=== PATIENT | male | born 1985 | race Caucasian/White ===

== ENCOUNTER 2017-06-10 21:50 | Inpatient (IN) | payer OTHER ==
[~2017-06-10] VITALS: Ht 188 cm; Wt 90.4 kg
[~2017-06-10 21:50] MED LIST: LRT5 PO
[2017-06-10] MEDS ORDERED: KETOROLAC TROMETHAMINE 30 MG/ML VIAL IV STA (22:20)
[2017-06-10] MEDS ORDERED: TRAZ100T29 PO (22:26)
[2017-06-10] MEDS ORDERED: GABA800T PO (22:26)
[2017-06-10] MEDS ORDERED: OPTIRAY 320 IV PRN (22:45)
[2017-06-10] MEDS ORDERED: LORAZEPAM 2 MG/ML 1 ML VIAL ONE (23:12)
[2017-06-10] MEDS ORDERED: LIDOCAINE 1% BUFFERED INJ 20 ML VIAL INFIL ONE (23:15)
--- NOTE | 2017-06-10 23:22 | EMERGENCY ROOM VISIT NOTE ---
History First contact with patient: 22:00 Chief Complaint: ANKLE PAIN Stated Complaint: R ANKLE PAIN/SWOLLEN History of Present Illness The patient is a 31 year old male who presents to the Emergency Room with complaints of severe swelling and pain in the right ankle. The patient rolled the ankle one week ago. He was seen at an emergency department where an x-ray was performed. No fracture was noted. He was given crutches and splint. He has been trying ibuprofen for pain. He thinks that the pain and swelling is getting worse. He also notes that he has felt slightly feverish. He has not taken his temperature at home. The patient had an injury to his right great toe a few days ago. He does have problems with this toenail. He accidentally kicked a weight. He has been cleaning it daily with peroxide. His tetanus shot is up-to-date. Review of Systems 10 system review performed and negative unless noted in HPI or below Past Medical/Surgical History Otherwise healthy Social History Smoking Status: Current Every Day Smoker Current/Historical Medications Scheduled Gabapentin (Neurontin), 800 MG PO TID Trazodone Hcl (Trazodone), 100 MG PO HS Physical Exam Vital Signs Date Time Temp Pulse Resp B/P (MAP) Pulse Ox O2 Delivery O2 Flow Rate FiO2 06/11/17 00:27 82 18 167/97 98 Room Air 06/10/17 21:52 37.0 125 18 154/85 97 Room Air Physical Exam VITALS: Vitals are noted on the nurse's note and reviewed by myself. Vital signs stable. GENERAL: 31-year-old male, anxious in appearance,, in no acute distress, nondiaphoretic, well-developed well-nourished. HEAD: Normocephalic atraumatic. HEART: Regular rate and rhythm without murmurs gallops or rubs. LUNGS: Clear to auscultation bilaterally without wheezes, rales or rhonchi. No accessory muscle use. MUSCULOSKELETAL: RLE: Significant nonpitting edema and erythema noted starting at the mid humphreys extending distally to the forefoot. Warmth noted. Severe tenderness over the lateral malleolus and distal fibula. No significant tenderness over the foot. The right great toenail is displaced from the nailbed. There is pus coming from the nailbed. No significant pain with flexion or extension of the toe. NEURO: Patient was alert and oriented to person place and time. Normal sensation to touch. No focal neurological deficits. Medical Decision & Procedures ER Provider Diagnostic Interpretation: CT of the lower extremity preliminary report Significant soft tissue edema Small fluid collection to the lateral ankle No bony destruction Please see final report for details Laboratory Results 06/10/17 23:07 Red Blood Count 4.29, Mean Corpuscular Volume 88.3, Mean Corpuscular Hemoglobin 29.8, Mean Corpuscular Hemoglobin Concent 33.8, Mean Platelet Volume 9.2, Neutrophils (%) (Auto) 61.3, Lymphocytes (%) (Auto) 23.6, Monocytes (%) (Auto) 12.4, Eosinophils (%) (Auto) 1.2, Basophils (%) (Auto) 0.2, Neutrophils # (Auto ) 7.86, Lymphocytes # (Auto) 3.03, Monocytes # (Auto) 1.59, Eosinophils # (Auto ) 0.15, Basophils # (Auto) 0.03 06/10/17 23:09 Test 06/10/17 23:07 06/10/17 23:09 White Blood Count 12.83 K/uL (4.8-10.8) Red Blood Count 4.29 M/uL (4.7-6.1) Hemoglobin 12.8 g/dL (14.0-18.0) Hematocrit 37.9 % (42-52) Mean Corpuscular Volume 88.3 fL (80-100) Mean Corpuscular Hemoglobin 29.8 pg (25-34) Mean Corpuscular Hemoglobin Concent 33.8 g/dl (32-36) Platelet Count 326 K/uL (130-400) Mean Platelet Volume 9.2 fL (7.4-10.4) Neutrophils (%) (Auto) 61.3 % Lymphocytes (%) (Auto) 23.6 % Monocytes (%) (Auto) 12.4 % Eosinophils (%) (Auto) 1.2 % Basophils (%) (Auto) 0.2 % Neutrophils # (Auto) 7.86 K/uL (1.4-6.5) Lymphocytes # (Auto) 3.03 K/uL (1.2-3.4) Monocytes # (Auto) 1.59 K/uL (0.11-0.59) Eosinophils # (Auto) 0.15 K/uL (0-0.5) Basophils # (Auto) 0.03 K/uL (0-0.2) RDW Standard Deviation 39.4 fL (36.4-46.3) RDW Coefficient of Variation 12.3 % (11.5-14.5) Immature Granulocyte % (Auto) 1.3 % Immature Granulocyte # (Auto) 0.17 K/uL (0.00-0.02) Lactic Acid Level 1.2 mmol/L (0.4-2.0) Anion Gap 5.0 mmol/L (3-11) Est Creatinine Clear Calc Drug Dose 188.6 ml/min Estimated GFR () 149.3 Estimated GFR (Non- 128.8 BUN/Creatinine Ratio 17.9 (10-20) Calcium Level 8.5 mg/dl (8.5-10.1) Medications Administered Medications (Trade) Dose Ordered Sig/Hugo Route Start Time Stop Time Status Last Admin Dose Admin Ketorolac Tromethamine (Toradol Inj) 30 mg NOW STAT IV 06/10/17 22:20 06/10/17 22:22 DC 06/10/17 22:37 30 MG Lidocaine HCl (Buffered Lidocaine 1% Inj) 20 ml NOW ONCE INFIL 06/10/17 23:15 06/10/17 23:16 DC 06/10/17 23:26 20 ML Lorazepam (Ativan Inj) 2 mg STK-MED ONCE .ROUTE 06/10/17 23:12 06/10/17 23:13 DC 06/10/17 23:25 1 MG Tramadol HCl (Ultram Tab) 50 mg ONE STAT PO 06/11/17 00:24 06/11/17 00:25 DC 06/11/17 00:36 50 MG Lorazepam 0.5 mg/ Syringe 0.5 ml @ 0.5 mls/min NOW STAT IV 06/11/17 00:24 06/11/17 00:26 DC 06/11/17 00:36 0.5 MLS/MIN Ceftriaxone Sodium (Rocephin Inj) 1 gm NOW STAT IV 06/11/17 00:29 06/11/17 00:30 DC 06/11/17 00:35 1 GM Procedure Anesthesia of the right great toe was achieved with lidocaine performing a digital block. The area was sterilely draped. The toenail was gently displaced from the nail bed. The area was thoroughly cleansed with Betadine and normal saline. A piece of sterile aluminum was gently placed back into the nail fold and secured in place with 4 simple interrupted sutures. The patient tolerated this procedure well. ED Course Patient was seen and examined Vital signs including blood pressure were reviewed medications list was verified with patient Labs were obtained, and a saline lock was established The patient was medicated with Toradol and Ativan The patient was given 1 dose of Rocephin 1 g IV Imaging was performed and reviewed The toenail was removed. Please see my procedure note. The patient requested an additional dose of Ativan, which was given IV. He was also given Ultram by mouth. The case was discussed with case management The [facility] service was consulted. He will be evaluated and likely be admitted for further workup and treatment Medical Decision Differential diagnosis: Ankle fracture, sprain, cellulitis, abscess, perionychia This patient is a 31-year-old male that presents to the emergency department with significant erythema, edema and pain in the right ankle and foot. He did have an injury 1 week ago. He also injured his right great toenail. On exam, he was significantly erythematous, warm to touch and painful. The right great toe was significantly infected and likely the source of cellulitis. He did have leukocytosis. He has felt febrile. CT was consistent with cellulitis. No signs of osteomyelitis. I do not feel comfortable sending this patient home. I believe he would do better eating admitted to the hospital for IV antibiotics. The [facility] service was consulted. They will evaluate the patient for possible admission. This chart was completed in part utilizing [employer] Speech Voice Recognition software. Attempts were made to minimize the grammatical errors, random word insertions, pronoun errors and incomplete sentences. Any formal questions or concerns about the content, text or information contained within the body of this dictation should be directly addressed to the provider for clarification. Consults Consulting Physician: [facility] Impression Primary Impression: Cellulitis of right lower extremity Departure Information Referrals No Doctor, Assigned (PCP) Patient Instructions [facility]
[2017-06-10] MEDS ORDERED: BUPIVACAINE/EPINEPHRINE 0.5% 1:200,000 1.8 ML CARP ONE (23:29)
[2017-06-10] MEDS ORDERED: BUPIVACAINE 0.5 % 5 MG/1 ML MPF 30ML VIAL ONE (23:31)
[2017-06-10 23:33] LABS: BASO % 0.2 %; BASO ABS # 0.03 K/uL (0-0.2); EOS % 1.2 %; EOS ABS # 0.15 K/uL (0-0.5); HEMATOCRIT 37.9 % (42-52); HEMOGLOBIN 12.8 g/dL (14.0-18.0); IG# 0.17 K/uL (0.00-0.02); LYMPH % 23.6 %; LYMPH ABS # 3.03 K/uL (1.2-3.4); MEAN CELL VOLUME 88.3 fL (80-100); MEAN CORPUSCULAR HEMOGLOBIN 29.8 pg (25-34); MEAN CORPUSCULAR HGB CONC 33.8 g/dl (32-36); MEAN PLATELET VOLUME 9.2 fL (7.4-10.4); MONO % 12.4 %; MONO ABS # 1.59 K/uL (0.11-0.59); NEUT % 61.3 %; NEUT ABS # 7.86 K/uL (1.4-6.5); PLATELET COUNT 326 K/uL (130-400); RED CELL DISTRIBUTION WIDTH CV 12.3 % (11.5-14.5); RED CELL DISTRIBUTION WIDTH SD 39.4 fL (36.4-46.3); WHITE BLOOD COUNT 12.83 K/uL (4.8-10.8)
[2017-06-10 23:43] LABS: CALCIUM 8.5 mg/dl (8.5-10.1); CREATININE 0.66 mg/dl (0.60-1.40); POTASSIUM 3.8 mmol/L (3.5-5.1)
[2017-06-11] MEDS ORDERED: TRAMADOL HCL 50 MG TAB PO STA (00:24)
[2017-06-11] MEDS ORDERED: LORAZEPAM INJ 0.5 MG in SYRINGE 0.25 ML IV STA ×2 (00:24→13:43)
[2017-06-11] MEDS ORDERED: LORAZEPAM INJ 1 MG in SYRINGE 0.5 ML IV STA (00:29)
[2017-06-11] MEDS ORDERED: CEFTRIAXONE SOD INJ 1 GM ADDVIAL IV STA (00:29)
[2017-06-11] MEDS ORDERED: LORAZEPAM 2 MG/ML 1 ML VIAL ONE (00:32)
[2017-06-11] MEDS ORDERED: OXYCODONE/ACETAMINOPHEN 7.5-325 TAB PO PRN (02:30)
[2017-06-11] MEDS ORDERED: ACETAMINOPHEN 325 MG TAB PO PRN (03:00)
[2017-06-11] MEDS ORDERED: MAGNESIUM HYDROXIDE SUSP 30 ML UDC PO PRN (03:00)
[2017-06-11] MEDS ORDERED: ALUMINUM/MAGNESIUM/SIMETH (MAALOX MAX) 30 ML UDC PO PRN (03:00)
[2017-06-11] MEDS ORDERED: POLYETHYLENE (MIRALAX) 17 GM PACK PO PRN (03:00)
[2017-06-11] MEDS ORDERED: ONDANSETRON INJ 2 MG/ML 2 ML VIAL IV PRN (03:00)
--- NOTE | 2017-06-11 03:10 | History and Physical ---
History & Physical Date & Time of Service: Jun 11, 2017 at 02:56 Chief Complaint: R Ankle Pain/Swollen Primary Care Physician: No Doctor, Assigned History of Present Illness Source: patient 31 y/o M Hx anxiety and back pain. 5 days prior he had stubbed his R great toe. His foot has become progressively inflamed since that time. He reports associated fevers as well. He had initially visited the [facility] where he obtained imaging to r/o a fracture. The pt had intended to visit his orthopedist the following day but has not done so due to the holidays. In the ER, extraction of his toenail was performed and a considerable amount of pus was expressed from the area. Past Medical/Surgical History 1) Chronic back pain 2) Anxiety 3) Tobacco use disorder Family History Parents alive and well Social History Smokes 1/2 pack/day - does not drink - works for [employer] Smoking Status: Current Every Day Smoker Allergies Coded Allergies: No Known Allergies (Unverified , 06/10/17) Home Medications Scheduled Gabapentin (Neurontin), 800 MG PO TID Trazodone Hcl (Trazodone), 100 MG PO HS Review of Systems Constitutional: + fever, No chills, No sweats Eyes: No worsening of vision ENT: No hearing loss Respiratory: No cough, No sputum, No wheezing Cardiovascular: No chest pain, No orthopnea Abdomen: No pain, No nausea, No vomiting Musculoskeletal: + problem reported (PAin in R foot/toe) Genitourinary - Male: No hematuria, No dysuria Neurologic: No memory loss, No paralysis, No weakness Psychiatric: No depression symptoms Endocrine: No fatigue Hematologic / Lymphatic: No abnormal bleeding/bruising Integumentary: + rash (cellulitis extending over R foot) Physical Exam Vital Signs Date Time Temp Pulse Resp B/P (MAP) Pulse Ox O2 Delivery O2 Flow Rate FiO2 06/11/17 00:27 82 18 167/97 98 Room Air 06/10/17 21:52 37.0 125 18 154/85 97 Room Air General Appearance: WD/WN, no apparent distress Head: normocephalic Eyes: normal inspection ENT: normal ENT inspection, hearing grossly normal Neck: supple, no JVD Respiratory/Chest: chest non-tender, lungs clear, normal breath sounds Cardiovascular: regular rate, rhythm, no edema, no gallop Abdomen/GI: normal bowel sounds, non tender, soft Back: normal inspection, no CVA tenderness Extremities/Musculoskelatal: + pertinent finding (Swelling, erythema, tenderness of R foot over dorsum and considerable tenderness over lat maleolus) Neurologic/Psych: soap slabber II-XII nml as tested, no motor/sensory deficits, alert Skin: + pertinent finding (Swelling, erythema of R foot over dorsum and considerable redness/tenderness over lat maleolus) Diagnostics Laboratory Results Results Past 24 Hours Test 06/10/17 23:07 06/10/17 23:09 Range/Units White Blood Count 12.83 4.8-10.8 K/uL Red Blood Count 4.29 4.7-6.1 M/uL Hemoglobin 12.8 14.0-18.0 g/dL Hematocrit 37.9 42-52 % Mean Corpuscular Volume 88.3 80-100 fL Mean Corpuscular Hemoglobin 29.8 25-34 pg Mean Corpuscular Hemoglobin Concent 33.8 32-36 g/dl Platelet Count 326 130-400 K/uL Mean Platelet Volume 9.2 7.4-10.4 fL Neutrophils (%) (Auto) 61.3 % Lymphocytes (%) (Auto) 23.6 % Monocytes (%) (Auto) 12.4 % Eosinophils (%) (Auto) 1.2 % Basophils (%) (Auto) 0.2 % Neutrophils # (Auto) 7.86 1.4-6.5 K/uL Lymphocytes # (Auto) 3.03 1.2-3.4 K/uL Monocytes # (Auto) 1.59 0.11-0.59 K/uL Eosinophils # (Auto) 0.15 0-0.5 K/uL Basophils # (Auto) 0.03 0-0.2 K/uL RDW Standard Deviation 39.4 36.4-46.3 fL RDW Coefficient of Variation 12.3 11.5-14.5 % Immature Granulocyte % (Auto) 1.3 % Immature Granulocyte # (Auto) 0.17 0.00-0.02 K/uL Lactic Acid Level 1.2 0.4-2.0 mmol/L Sodium Level 139 136-145 mmol/L Potassium Level 3.8 3.5-5.1 mmol/L Chloride Level 102 98-107 mmol/L Carbon Dioxide Level 32 21-32 mmol/L Anion Gap 5.0 3-11 mmol/L Blood Urea Nitrogen 12 7-18 mg/dl Creatinine 0.66 0.60-1.40 mg/dl Est Creatinine Clear Calc Drug Dose 188.6 ml/min Estimated GFR () 149.3 Estimated GFR (Non- 128.8 BUN/Creatinine Ratio 17.9 10-20 Random Glucose 94 70-99 mg/dl Calcium Level 8.5 8.5-10.1 mg/dl Microbiology Results 06/10/17 Blood Culture, Received Pending 06/10/17 Blood Culture, Received Pending 06/10/17 Gram Stain, Received Pending 06/10/17 Bacterial Culture, Received Pending Diagnostic Radiology CT R foot/ankle - soft tissue inflammation - fluid collection laterally - suggests synovitis Impression Assessment and Plan 31 y/o M Hx anxiety and back pain. 5 days prior he had stubbed his R great toe. His foot has become progressively inflamed since that time. He reports associated fevers as well. He had initially visited the [facility] where he obtained imaging to r/o a fracture. The pt had intended to visit his orthopedist the following day but has not done so due to the holidays. In the ER, extraction of his toenail was performed and a considerable amount of pus was expressed from the area. 1) Infection of R foot - placed on Ceftriaxone and Vanc pending culture results - orthopedics consult requested. 2) Chronic back pain - continue Gabapentin 3) Smoker - provided with cessation literature 4) Mild anemia is seen on initial labs - should be followed up as outpt Full code - Anticoagulation deferred pending ortho eval Total time for this admit including review of labs, meds, imaging - discussion with pt and ER attending - 33 min Level of Care Med/Surg Resuscitation Status FULL RESUSCITATION VTE Prophylaxis VTE Risk Assessment Done? Y/N: Yes Risk Level: Very Low Given or contraindicated: Treatment not indicated
[2017-06-11 03:45] VITALS: BP 159/98; PULSE 111; TEMP 37.9; O2SAT 97; Ht 188 cm; Wt 90.4 kg
[2017-06-11] MEDS ORDERED: IV FLUIDS COMPLETED PRN (05:00)
[2017-06-11] MEDS ORDERED: VANCOMYCIN IV 2,000 MG in SODIUM CHLORIDE 0.9% 500ML 500 ML IV ONE (06:00)
[2017-06-11] MEDS ORDERED: VANCOMYCIN CONSULT ACTIVE PRN (06:00)
[2017-06-11] MEDS ORDERED: TRAZODONE HCL 100 MG TAB PO ONE (06:15)
[2017-06-11] MEDS: KETOROLAC TROMETHAMINE 30 MG/ML VIAL IV. PRN ×3 (06:32→19:08)
--- NOTE | 2017-06-11 06:45 | DIAGNOSTIC IMAGING REPORT ---
CT RIGHT ANKLE WITH CONTRAST CT DOSE: 267.32 mGy.cm CLINICAL HISTORY: Right lower leg cellulitis. Trauma. Evaluate for abscess or fracture. TECHNIQUE: The patient was scanned following administration of 93 cc of Optiray 320. Sagittal and coronal reformatted images were acquired. A dose lowering technique was utilized adhering to the principles of ALARA. COMPARISON STUDY: None. FINDINGS: There is a joint effusion present at the level of the right ankle. There is diffuse soft tissue edema present. No acute fractures are visualized. The ankle mortise appears intact. A 15 mm fluid collection, posterior to the distal tibiofibular syndesmosis, likely communicates with the joint. There is edema surrounding the peroneus brevis and longus tendons. If there is concern over the presence of a tendon or ligamentous injury, an MRI could be obtained in follow-up. No bony destructive lesions are evident. IMPRESSION: 1. Joint effusion 2. Soft tissue edema, consistent with either posttraumatic edema or cellulitis. 3. No acute fractures 4. If there is clinical concern over the presence of a tendinitis or ligamentous injury, an MRI could be obtained in follow-up. Electronically signed by: Bill Jang M.D. 06/11/2017 6:43 AM Dictated Date/Time: 06/11/2017 6:37 AM
[2017-06-11 06:57] VITALS: BP 133/90; PULSE 93; TEMP 37.3; O2SAT 96
--- NOTE | 2017-06-11 07:01 | DIAGNOSTIC IMAGING REPORT ---
RIGHT LOWER EXTREMITY VENOUS DOPPLER CLINICAL HISTORY: Right lower extremity edema. COMPARISON STUDY: No previous studies for comparison. TECHNIQUE: Sonography of the deep venous system of the right lower extremity was performed. Compression and augmentation were evaluated. FINDINGS: The right common femoral, superficial femoral and popliteal veins were compressible. Augmentation was normal. Flow was shown within the deep calf vessels. A mildly enlarged right inguinal lymph node has benign imaging characteristics given a fatty hilum and elongated morphology. IMPRESSION: No evidence of deep venous thrombus within the right lower extremity. Electronically signed by: David Norris M.D. 06/11/2017 6:59 AM Dictated Date/Time: 06/11/2017 6:59 AM
--- NOTE | 2017-06-11 08:00 | NUR ---
OBS: Pt AAOx4, crutches at bedside, lungs clear on RA, complaining of 6/10 pain- requests anxiety and tramadol for pain, neither of which is on patient's chart. Pt upset and swearing. Called team pager to request these for the patient. Girlfriend at bedside also exhibiting high anxiety and asking many questions (why he needs to pee in urinal, why I can't give [unordered] meds, etc). Right foot elevated, 2+ pitting edema, pulses WNL, pt states some numbness but able to feel touch. Intermittent antibiotics infusing at this time. Call nance within reach. Crutches at bedside for pt to get OOB. Pt and girlfriend "just don't understand" why this RN cannot give tramadol and ativan since he was getting it downstairs. I explained to them that we need a new order to give these on our floor and I would page the new doctor taking over for Dr. Huff. This is when the patient started using vulgar language. States "my anxiety is through the roof right now"; received IV ativan downstairs, does not take ativan at home. Refused percocet that IS ordered on his chart.
[2017-06-11] MEDS: GABAPENTIN 800 MG TAB PO SCH ×3 (08:42→21:26)
[2017-06-11] MEDS: NICOTINE 7 MG/24 HR TDSY TD SCH (09:00)
--- NOTE | 2017-06-11 09:12 | Family Medicine Progress Note ---
Progress Note Date of Service Jun 11, 2017. Subjective Pt evaluation today including: conversation w/ patient, conversation w/ family , physical exam, chart review, lab review Pain: Reports R foot pain this AM PO Intake: NPO Voiding: no voiding problems This AM pt and girlfriend appeared frustrated with transition of care from ED to floor. Pt reported "a lot of R foot pain". Otherwise asymptomatic Constitutional: No fever, No chills Respiratory: No shortness of breath Cardiovascular: No chest pain Abdomen: No pain, No nausea, No vomiting Male : No dysuria Medications Current Inpatient Medications Medications (Trade) Dose Ordered Sig/Hugo Route Start Time Stop Time Status Last Admin Dose Admin Ioversol (Optiray 320) 100 ml UD PRN IV 06/10/17 22:45 06/14/17 22:44 Gabapentin (Neurontin Tab) 800 mg TID PO 06/11/17 09:00 07/11/17 08:59 06/11/17 08:42 800 MG Trazodone HCl (Desyrel Tab) 100 mg HS PO 06/11/17 21:00 07/11/17 20:59 Oxycodone/ Acetaminophen (Percocet 7.5-325MG Tab) 1 tab Q4H PRN PO 06/11/17 02:30 06/25/17 02:29 Ceftriaxone Sodium 1 gm/ Dextrose 50 ml @ 100 mls/hr Q24H IV 06/11/17 23:00 06/20/17 22:59 Acetaminophen (Tylenol Tab) 650 mg Q4H PRN PO 06/11/17 03:00 07/11/17 02:59 Al Hydrox/Mg Hydrox/Simethicone (Maalox Max Susp) 15 ml Q4H PRN PO 06/11/17 03:00 07/11/17 02:59 Magnesium Hydroxide (Milk Of Magnesia Susp) 30 ml Q6H PRN PO 06/11/17 03:00 07/11/17 02:59 Polyethylene (Miralax Powder Packet) 17 gm DAILY PRN PO 06/11/17 03:00 07/11/17 02:59 Ondansetron HCl (Zofran Inj) 4 mg Q6H PRN IV 06/11/17 03:00 07/11/17 02:59 Nicotine (Nicoderm Cq 7 Mg Patch) 1 patch QAM TD 06/11/17 09:00 07/11/17 08:59 Miscellaneous (Remove Nicoderm Patch) 1 ea HS N/A 06/11/17 21:00 07/11/17 20:59 Miscellaneous (Iv Fluids Completed) 1 ea PRN PRN N/A 06/11/17 05:00 06/11/18 04:59 Ketorolac Tromethamine (Toradol Inj) 30 mg Q6H PRN IV. 06/11/17 06:00 06/16/17 05:59 06/11/17 06:32 30 MG Vancomycin HCl (Consult) 1 ea UD PRN N/A 06/11/17 06:00 07/11/17 05:59 Objective Vital Signs Date Time Temp Pulse Resp B/P (MAP) Pulse Ox O2 Delivery O2 Flow Rate FiO2 06/11/17 06:57 37.3 93 12 133/90 (104) 96 Room Air 06/11/17 03:45 37.9 111 18 159/98 97 Room Air 06/11/17 03:21 88 18 155/79 98 06/11/17 02:44 78 18 160/92 98 Room Air 06/11/17 00:27 82 18 167/97 98 Room Air 06/10/17 21:52 37.0 125 18 154/85 97 Room Air Physical Exam General Appearance: no apparent distress Eyes: normal inspection, sclerae normal Respiratory/Chest: lungs clear, normal breath sounds Cardiovascular: regular rate, rhythm, no murmur Abdomen: normal bowel sounds, non tender, soft Extremities: no calf tenderness, + pertinent finding (R foot erythematous to ankle, edematous, warm and tender to touch with intact sensation and pulses) Neurologic/Psychiatric: alert, oriented x 3 Skin: + rash (erythema R foot spreading to R ankle) Laboratory Results Date Time Temp Pulse Resp B/P (MAP) Pulse Ox O2 Delivery O2 Flow Rate FiO2 06/11/17 06:57 37.3 93 12 133/90 (104) 96 Room Air 06/11/17 03:45 37.9 111 18 159/98 97 Room Air 06/11/17 03:21 88 18 155/79 98 06/11/17 02:44 78 18 160/92 98 Room Air 06/11/17 00:27 82 18 167/97 98 Room Air 06/10/17 21:52 37.0 125 18 154/85 97 Room Air Assessment and Plan 31 y/oM with hx of anxiety and back pain who presented with 5 days of R foot pain and inflammation s/p rolling foot and hitting it on weights. In the ER, R great toenail extracted with pus drainage which was sent for culture. Now on IV abx with stable vitals. Sepsis in the setting of R foot cellulitis - R leg Venous doppler - no DVT - R foot/ankle CT - no fracture, joint effusion and soft tissue edema - BCx x 2 - pending - WCx - pending (Gram stain - many gram + cocci) - WBC elevated to 12.83 with L shift - On Ceftriaxone 1g daily and Vanc - Tramadol 40mg PO for pain Q4H PRN - Ortho consulted - NPO - started on NS IVF @ 125 ml/hr Chronic back pain - Continue Gabapentin Sleep - Continue Trazodone 100mg QHS Mild Anemia - Hgb - 12.8 - Recommend outpatient PCP follow up Tobacco dependence - Nicotine patch ordered Full code DVT prophylaxis: pending ortho eval ADDENDUM: Spoke with patient at 18:00 regarding repeated Ativan requests for anxiety. Patient reports taking medication regularly to help with anxiety. He reported Dr. Waller in [facility] prescribes it to him but he did not have a number for the doctor and I could not find Dr. Waller's contact information. He later called his ex-girlfriend and reported the medication being prescribed by Dr. Adama Toledo in [facility]. I will contact Dr. Toledo tomorrow. I tried to obtain a through history to further assist him with his anxiety symptoms, he reported daily anxiety which has worsened during his illness. I explained to him that unless we can prove he takes Ativan on a regular basis to control his anxiety which we could not based on PDMP records and his med rec we cannot give him Ativan. However, to better control his anxiety symptoms we have ordered Clonidine and hydroxyzine PRN to make him comfortable. If he trials those medications and they fail to help him then we can consider alternative treatment regimens for his anxiety. Patient expressed concerns about Clonidine being a blood pressure medication and not wanting to take it. I reassured pt that it is also used for anxiety. Patient was given the option to take Clonidine and hydroxyzine and reassured that he will be monitored and in good hands over night and that we will discuss management of his anxiety again tomorrow during rounds. Resident Involvement: Resident Care Provided Care Provided: Adult Hospital Medicine History Resident Physician Supervision Note: I was present with Dr. Edmonds during the history and exam. I discussed the case with the resident and agree with the findings and plan as documented in the note. Any exceptions or clarifications are listed here. Pt seen and examined with Dr. Edmonds. Reports that initial injury was ankle sprain which he states was severe inversion of the ankle while stepping down a step, followed by jamming the great toe on a weight. The rash, swelling and pain , he says, developed over the last 2 days. He states that he has had the nail come off multiple times in the past, and that he's had to remove it in the past himself, but he denies pervious infection of the foot or severe trauma. He states that he is very anxious regarding his pain and has been prescribed medication for it in the past. Initially, this medication was lorazepam, and then Xanax, but neither of these appear in the PDMP and he evades the question of his prescribing physician. The PDMP does show that he takes buprenorphine/ naloxone and received his last Rx in May, though he reports having not taken this medication in the last week. At present, his pain is well controlled on present regimen barring any movement or manipulation of the foot. Reports no fever, chills, palpitations, CP, sensory changes, n/v. General Appearance: no apparent distress Respiratory: chest non-tender, lungs clear, normal breath sounds, no respiratory distress Cardiovascular: normal peripheral pulses, regular rate, rhythm, no murmur Extremities: other (swollen, TTP ankle with pain more lateral than medial malleolar) Neurologic/Psychiatric: no motor/sensory deficits, alert, normal mood/affect, oriented x 3 Skin Characteristics: other (swelling at the ankle and distally with overlying erythema which encompasses the entire dorsal foot, sparing the sole, worse dependently.) Assessment/Plan 31 y/o male h/o chronic back pain, anxiety presents with swollen, painful right foot Right foot cellulitis - CT w/ ankle joint effusion, no overt sign of OM. Continue vancomycin and ceftriaxone. Tramadol for pain control. Orthopaedics consultation pending. Chronic back pain - continue gabapentin Suspected substance abuse - monitor closely for changes in behavior and withdrawal sx. Consistent suboxone rx as outpatient per PDMP Anxiety - self reported without history of same. ONE TIME dose of 0.5mg ativan IV given. Tobacco use - cessation encouraged, nicotine patch Anemia - monitor CBC daily Will need DVT PPX if no procedure desired by orthopaedic surgery
[2017-06-11] MEDS ORDERED: TRAMADOL HCL 50 MG TAB ONE (11:47)
[2017-06-11] MEDS: TRAMADOL HCL 50 MG TAB PO PRN ×3 (11:47→21:27)
[2017-06-11] MEDS: VANCOMYCIN IV 2,000 MG in SODIUM CHLORIDE 0.9% 500ML 500 ML IV SCH ×2 (13:29→21:27)
[2017-06-11] MEDS: SODIUM CHLORIDE 0.9% 1000ML 1,000 ML IV SCH ×2 (13:35→21:30)
--- NOTE | 2017-06-11 14:02 | NUR ---
ID: Pt AAOx4, pt complained of high anxiety today, ortho has yet to see pt. Unknown d/c plans. Right foot elevated on 2x pillows, swollen/red/warm to touch. Pulses WNL, able to palpate. Call nance within reach. Pain tolerable with prn pain meds.
--- NOTE | 2017-06-11 14:40 | Pharmacy Progress Note ---
Pharmacy Antibiotic Consult Date of Service: Jun 11, 2017. Pharmacy Dosing Scope Pharmacy is consulted to initiate vancomycin IV dosing therapy, order appropriate labs and adjust drug dose/frequency. Subjective The patient is a 31 year old male admitted on Jun 11, 2017 at 10:33 with cellulitis R big toe. Objective Height (Feet): 6 Height (Inches): 2.00 Weight (Kilograms): 90.400 Lab Results (24hrs): Test 06/10/17 23:07 06/10/17 23:09 06/11/17 06:49 White Blood Count 12.83 K/uL (4.8-10.8) Red Blood Count 4.29 M/uL (4.7-6.1) Hemoglobin 12.8 g/dL (14.0-18.0) Hematocrit 37.9 % (42-52) Mean Corpuscular Volume 88.3 fL (80-100) Mean Corpuscular Hemoglobin 29.8 pg (25-34) Mean Corpuscular Hemoglobin Concent 33.8 g/dl (32-36) Platelet Count 326 K/uL (130-400) Mean Platelet Volume 9.2 fL (7.4-10.4) Neutrophils (%) (Auto) 61.3 % Lymphocytes (%) (Auto) 23.6 % Monocytes (%) (Auto) 12.4 % Eosinophils (%) (Auto) 1.2 % Basophils (%) (Auto) 0.2 % Neutrophils # (Auto) 7.86 K/uL (1.4-6.5) Lymphocytes # (Auto) 3.03 K/uL (1.2-3.4) Monocytes # (Auto) 1.59 K/uL (0.11-0.59) Eosinophils # (Auto) 0.15 K/uL (0-0.5) Basophils # (Auto) 0.03 K/uL (0-0.2) RDW Standard Deviation 39.4 fL (36.4-46.3) RDW Coefficient of Variation 12.3 % (11.5-14.5) Immature Granulocyte % (Auto) 1.3 % Immature Granulocyte # (Auto) 0.17 K/uL (0.00-0.02) Lactic Acid Level 1.2 mmol/L (0.4-2.0) Sodium Level 139 mmol/L (136-145) Potassium Level 3.8 mmol/L (3.5-5.1) Chloride Level 102 mmol/L (98-107) Carbon Dioxide Level 32 mmol/L (21-32) Anion Gap 5.0 mmol/L (3-11) Blood Urea Nitrogen 12 mg/dl (7-18) Creatinine 0.66 mg/dl (0.60-1.40) Est Creatinine Clear Calc Drug Dose 188.6 ml/min Estimated GFR () 149.3 Estimated GFR (Non- 128.8 BUN/Creatinine Ratio 17.9 (10-20) Random Glucose 94 mg/dl (70-99) Calcium Level 8.5 mg/dl (8.5-10.1) Iron Level 27 mcg/dl (35-175) Total Iron Binding Capacity 215 mcg/dl (250-450) Micro Results: 06/10 blood x2 pending 06/10 drainage deep R toe pending Recent Pertinent Medications Item Value Date Time Ceftriaxone 50 ml @ 100 mls/hr 06/11/17 2300 Sodium 1 gm/ Q24H/IV Dextrose Vancomycin HCl 540 ml @ 200 mls/hr 06/11/17 1400 2000 mg/Sodium Q8/IV 06/11/17 1329 Chloride Vancomycin HCl 540 ml @ 200 mls/hr 06/11/17 0600 2000 mg/Sodium NOW ONCE/IV 06/11/17 0624 Chloride Ceftriaxone Sodium 1 gm 06/11/17 0029 (Rocephin Inj) NOW STAT/IV 06/11/17 0035 Assessment & Plan Loading dose: vancomycin 2000 mg IV X 1 dose (~22 mg/kg) then: will continue larger dose than usual since patient is likely to clear it faster. Vancomycin 2000 mg IV every 8 hours. Goal peak level estimate: between 25-40 mcg/mL. Goal trough level estimate: between 15-20 mcg/mL. Trough level has been ordered for: 06/12/17 before 1400 dose. Pharmacy will continue to follow and will adjust dose/frequency as necessary. Thank you
[2017-06-11 14:58] VITALS: BP 150/75; PULSE 92; TEMP 37; O2SAT 95
[2017-06-11] MEDS ORDERED: CLONIDINE HCL 0.1 MG TAB PO PRN (15:15)
--- NOTE | 2017-06-11 18:21 | ORTHOPEDIC CONSULTATION ---
DATE OF CONSULTATION: 06/11/2017 CHIEF COMPLAINT: Right ankle sprain. HISTORY OF PRESENT ILLNESS: Dov is a pleasant 31-year-old male who was walking outside a week ago when he stepped off a curb and severely supinated and rotated his right ankle. He had immediate right ankle pain. He went to the [facility] where radiographs were done which were negative. They diagnosed him with an ankle sprain and gave him an Aircast and some crutches. He also has a history of chronic removal and loosening of the nail plate of his right great toe. He says the nail plate comes off quite often, he oftentimes have to go to the Emergency Room and if there is a little bit of pus coming out of these and give him oral antibiotics and it goes away. This is a chronic condition with him. He says his nail can often come off these just putting on a shoe. Most of his pain and his complaints are with his right ankle. He is unable to bear weight and it is very swollen. He was admitted to the medical service and was started on IV antibiotics for his right great toe and orthopedics was consulted for his foot and ankle pain. PAST MEDICAL HISTORY: Significant for chronic back pain, anxiety and tobacco use. FAMILY HISTORY: Noncontributory. SOCIAL HISTORY: He smokes 1/2 pack a day, does not drink. He works for the [employer]. MEDICATIONS: Include Neurontin and trazodone. REVIEW OF SYSTEMS: He complains of right foot and ankle pain. All other pertinent review of systems are negative. PHYSICAL EXAMINATION: LOWER EXTREMITIES: Of his right ankle: There is a lot of swelling and some redness. It is mostly ecchymosis. Most of the swelling is located over the lateral ligamentous structures. He also has some pain posteriorly in the area of the Achilles, but the Achilles is palpable. He has a lot of pain with minimal range of motion of his ankle. His great toe does not look too bad. He does not have much pain, there is minimal erythema and I see no signs of pus in his great toe. The nail plate has been removed. His lesser toes look okay and he is able to wiggle his toes. IMAGING DATA: CT scan of the right ankle reviewed, shows no evidence of significant abscess collection. MRI would be needed to better delineate the ligamentous structures; ultrasound of the lower extremity was negative. IMPRESSION: 1. Grade 2 possible grade 3 right ankle sprain. 2. Nail plate removal with a small local infection of the right great toe. PLAN: I think this is mostly severe ankle sprain. His ankle is very swollen and he has had a lot of ecchymosis, which I often see. I told him it takes 6 weeks to calm down completely. His toe looks okay, but given the small infection of his toe and the mild swelling around his ankle, I do want to get an MRI, just to make sure I feel confident to tell him that he could be up and ambulated on this and get him started with physical therapy. Will try get to the MRI later today or early tomorrow morning and if everything looks good, we will likely discharge him home for office followup. I see no surgical indications at this time and I am going to give him the regular diet.
[2017-06-11] MEDS ORDERED: hydrOXYzine HCL 25 MG TAB PO PRN (18:45)
[2017-06-11] MEDS ORDERED: TRAZODONE HCL 100 MG TAB PO SCH (21:00)
[2017-06-11] MEDS ORDERED: CEFTRIAXONE SOD INJ 1 GM in DEXTROSE 5% ADD-VANTAGE 50ML 50 ML IV SCH (23:00)
--- NOTE | 2017-06-11 23:13 | DIAGNOSTIC IMAGING REPORT ---
R LOWER EXT JOINT WITHOUT CLINICAL HISTORY: 31 years-old Male with Right ankle sprain. Acute lateral right ankle pain status post recent sprain COMPARISON: Right ankle CT of same day. TECHNIQUE: Multiplanar, multi sequence MRI of the right ankle was performed without contrast. FINDINGS: LATERAL LIGAMENT COMPLEX: There is an acute complete tear (grade III sprain) of the anterior talofibular ligament at the talar insertion site, nicely seen on image 26 series 8. The Calcaneofibular ligament is thickened with intermediate signal suggesting acute grade 1 sprain. The posterior talofibular ligament is intact. SYNDESMOTIC LIGAMENTS: The anterior-inferior tibiofibular ligament, interosseous membrane and posterior-inferior tibiofibular ligaments are intact. DELTOID LIGAMENT COMPLEX: The superficial and deep components of the deltoid ligament are intact. ANTERIOR TENDONS: The tibialis anterior, extensor hallucis longus and extensor digitorum longus tendons are normal in position, morphology and signal. LATERAL TENDONS: There is mild to moderate tendinosis of the peroneus longus tendon. There is a short segment split tear of the peroneus brevis tendon for a length of 1.8 cm seen along its inframalleolar coarse as noted on image 27 series 8 extending through image 30 series 8. MEDIAL TENDONS: The posterior tibialis, flexor digitorum longus and flexor hallucis longus tendons are intact. PLANTAR FASCIA: The medial and lateral bundles of the plantar fascia are normal in morphology and signal. There is no evidence of acute plantar fasciitis or tear. No evidence of plantar fascial nodules. ACHILLES TENDON: The Achilles tendon is normal in position, morphology and signal. Trace fluid is noted within the retrocalcaneal bursa compatible with bursitis as noted on image 15 series 5. SINUS TARSI: There is normal fat signal within the sinus tarsi. The interosseous and cervical ligaments are normal. The navicular-calcaneal (spring) ligament is without acute abnormality. TARSAL TUNNEL: There are no obstructing lesions within the tarsal tunnel. BONE MARROW: Patchy multifocal areas of bone marrow edema are noted about the ankle, with moderate edema within the lateral malleolus, mild to moderate edema of the medial malleolus and medial talus. Mild bone marrow edema seen within the region of the peroneal tuberosity calcaneus. No acute fracture, subluxation or osteochondral defect. SOFT TISSUES: Moderate sized joint effusion without intra-articular loose body. Moderate amount of fluid is also seen within the posterior recess. There is moderate soft tissue edema which is mostly subcutaneous about the lower leg and imaged foot, greatest dorsally and laterally. Moderate amount of intramuscular edema involves the peroneus brevis myotendinous junction as seen on image 14 series 8 with mild irregularity of the muscle fiber seen within this region. IMPRESSION: 1. Acute complete tear (grade III sprain) of the anterior talofibular ligament at the talar insertion site with acute grade I sprain of the calcaneofibular ligament. Moderate soft tissue edema about the lower leg and ankle is likely posttraumatic. 2. Short segment split tear of the peroneus brevis tendon for a length of 1.8 cm along its inframalleolar coarse. Additionally, there is an acute grade I/II strain of the peroneus brevis myotendinous junction. 3. Areas of moderate bone marrow edema involving the ankle as above suggest bone contusions without evidence of fracture. 4. Moderate joint effusion. The above report was generated using voice recognition software. It may contain grammatical, syntax or spelling errors. Electronically signed by: Jose Henley M.D. 06/11/2017 11:11 PM Dictated Date/Time: 06/11/2017 10:50 PM
[2017-06-11 23:16] VITALS: BP 157/82; PULSE 88; TEMP 36.9; O2SAT 99
[2017-06-12] MEDS ORDERED: CEFTRIAXONE SOD INJ 1 GM in DEXTROSE 5% ADD-VANTAGE 50ML 50 ML IV SCH (01:00)
[2017-06-12] MEDS: KETOROLAC TROMETHAMINE 30 MG/ML VIAL IV. PRN ×4 (01:57→18:51)
[2017-06-12] MEDS: VANCOMYCIN IV 2,000 MG in SODIUM CHLORIDE 0.9% 500ML 500 ML IV SCH ×2 (05:29→13:55)
[2017-06-12] MEDS: SODIUM CHLORIDE 0.9% 1000ML 1,000 ML IV SCH ×2 (05:29→13:11)
[2017-06-12] MEDS: TRAMADOL HCL 50 MG TAB PO PRN ×3 (07:03→16:47)
[2017-06-12 07:07] LABS: BASO % 0.3 %; BASO ABS # 0.04 K/uL (0-0.2); EOS % 1.5 %; EOS ABS # 0.17 K/uL (0-0.5); HEMOGLOBIN 12.2 g/dL (14.0-18.0); IG# 0.11 K/uL (0.00-0.02); LYMPH % 28.3 %; LYMPH ABS # 3.32 K/uL (1.2-3.4); MEAN CELL VOLUME 87.6 fL (80-100); MEAN CORPUSCULAR HEMOGLOBIN 29.7 pg (25-34); MEAN CORPUSCULAR HGB CONC 33.9 g/dl (32-36); MEAN PLATELET VOLUME 9.3 fL (7.4-10.4); MONO % 9.6 %; MONO ABS # 1.12 K/uL (0.11-0.59); NEUT % 59.4 %; NEUT ABS # 6.96 K/uL (1.4-6.5); PLATELET COUNT 346 K/uL (130-400); RED CELL DISTRIBUTION WIDTH CV 12.2 % (11.5-14.5); WHITE BLOOD COUNT 11.72 K/uL (4.8-10.8)
[2017-06-12 07:19] VITALS: BP 135/85; PULSE 90; TEMP 36.8; O2SAT 99
--- NOTE | 2017-06-12 07:25 | PROGRESS NOTE ---
DATE: 06/12/2017 CHIEF COMPLAINT: Right ankle sprain. PROGRESS: Dov was seen and examined at bedside today. He is still having a lot of soreness and pain in his ankle. He is still unable to bear weight. He had no acute events overnight. PHYSICAL EXAMINATION: RIGHT ANKLE: There is ecchymosis in the area. I do not see much erythema. There is swelling mostly in the area of the lateral ligamentous structures of the ankle. He did have a nail plate removed from his right great toe. There is no purulent discharge at this time. No signs of significant infection of the great toe. IMAGING: MRI reviewed by myself as well as radiology report shows a grade 3 right ankle sprain. There was a complete tear of the anterior talofibular ligament with some stretching of the calcaneofibular ligament. There was also a little bit of splitting of the peroneus brevis. I see no signs of abscess collection and no signs of infection on the MRI. IMPRESSION: Grade 3 right ankle sprain. PLAN: This is something that can be treated with conservative measures. I ordered him an ASO ankle brace to be fitted with here in the hospital. He can continue ice and elevation. I also told him that I do want to encourage ambulation on it, our studies find that as soon you start walking on ankle brace, the quicker you recover. He can use crutches as needed. As far as the great toe was concerned I believe he just needs a short stint of oral antibiotics as he has dealt with this toe infection for many years. I told him that it will take anywhere from 6-8 weeks to recover from this and he understands that. He is orthopedically stable for discharge. I will see him in my office in 2 weeks for standard followup. Office phone number is [phone].
[2017-06-12 07:45] LABS: BLOOD UREA NITROGEN 9 mg/dl (7-18); CALCIUM 8.4 mg/dl (8.5-10.1); CARBON DIOXIDE 28 mmol/L (21-32); CREATININE 0.55 mg/dl (0.60-1.40); GLUCOSE 96 mg/dl (70-99); POTASSIUM 4.4 mmol/L (3.5-5.1); SODIUM 133 mmol/L (136-145)
--- NOTE | 2017-06-12 08:12 | NUR ---
Talked to Mariella at orthotics RE: ASO brace. Deniz is aware.
[2017-06-12] MEDS: GABAPENTIN 800 MG TAB PO SCH ×2 (08:22→13:55)
[2017-06-12] MEDS: NICOTINE 7 MG/24 HR TDSY TD SCH (08:22)
--- NOTE | 2017-06-12 08:52 | Family Medicine Progress Note ---
Progress Note Date of Service Jun 12, 2017. Subjective Pt evaluation today including: conversation w/ patient, physical exam, chart review, lab review Pain: foot pain still 7/10 PO Intake: tolerating Voiding: no voiding problems This morning reports 7/10 foot pain still and anxiety. Otherwise asymptomatic and tolerating PO diet Constitutional: No fever, No chills Respiratory: No shortness of breath Cardiovascular: No chest pain Abdomen: No pain, No nausea, No vomiting Male : No dysuria Medications Current Inpatient Medications Medications (Trade) Dose Ordered Sig/Hugo Route Start Time Stop Time Status Last Admin Dose Admin Ioversol (Optiray 320) 100 ml UD PRN IV 06/10/17 22:45 06/14/17 22:44 Gabapentin (Neurontin Tab) 800 mg TID PO 06/11/17 09:00 07/11/17 08:59 06/12/17 08:22 800 MG Trazodone HCl (Desyrel Tab) 100 mg HS PO 06/11/17 21:00 07/11/17 20:59 Acetaminophen (Tylenol Tab) 650 mg Q4H PRN PO 06/11/17 03:00 07/11/17 02:59 Al Hydrox/Mg Hydrox/Simethicone (Maalox Max Susp) 15 ml Q4H PRN PO 06/11/17 03:00 07/11/17 02:59 Magnesium Hydroxide (Milk Of Magnesia Susp) 30 ml Q6H PRN PO 06/11/17 03:00 07/11/17 02:59 Polyethylene (Miralax Powder Packet) 17 gm DAILY PRN PO 06/11/17 03:00 07/11/17 02:59 Ondansetron HCl (Zofran Inj) 4 mg Q6H PRN IV 06/11/17 03:00 07/11/17 02:59 Nicotine (Nicoderm Cq 7 Mg Patch) 1 patch QAM TD 06/11/17 09:00 07/11/17 08:59 Miscellaneous (Remove Nicoderm Patch) 1 ea HS N/A 06/11/17 21:00 07/11/17 20:59 Miscellaneous (Iv Fluids Completed) 1 ea PRN PRN N/A 06/11/17 05:00 06/11/18 04:59 Ketorolac Tromethamine (Toradol Inj) 30 mg Q6H PRN IV. 06/11/17 06:00 06/16/17 05:59 06/12/17 08:21 30 MG Vancomycin HCl (Consult) 1 ea UD PRN N/A 06/11/17 06:00 07/11/17 05:59 Vancomycin HCl 2000 mg/Sodium Chloride 540 ml @ 200 mls/hr Q8 IV 06/11/17 14:00 06/21/17 05:59 06/12/17 05:29 200 MLS/HR Tramadol HCl (Ultram Tab) 50 mg Q4H PRN PO 06/11/17 11:30 07/11/17 11:29 06/12/17 07:03 50 MG Sodium Chloride 1,000 ml @ 125 mls/hr Q8H IV 06/11/17 13:15 07/11/17 13:14 06/12/17 05:29 125 MLS/HR Clonidine HCl (Catapres Tab) 0.1 mg Q6H PRN PO 06/11/17 15:15 06/15/17 15:14 06/11/17 17:09 0.1 MG Hydroxyzine HCl (Vistaril Tab) 50 mg QID PRN PO 06/11/17 18:45 06/15/17 18:44 Ceftriaxone Sodium 1 gm/ Dextrose 50 ml @ 100 mls/hr Q24H IV 06/12/17 01:00 06/21/17 00:59 06/12/17 01:18 100 MLS/HR Objective Vital Signs Date Time Temp Pulse Resp B/P (MAP) Pulse Ox O2 Delivery O2 Flow Rate FiO2 06/12/17 08:38 Room Air 06/12/17 07:19 36.8 90 18 135/85 (102) 99 Room Air 06/11/17 23:25 Room Air 06/11/17 23:16 36.9 88 14 157/82 (107) 99 Room Air 06/11/17 15:25 Room Air 06/11/17 14:58 37.0 92 17 150/75 (100) 95 Room Air Physical Exam General Appearance: no apparent distress Neck: supple Respiratory/Chest: lungs clear, normal breath sounds Cardiovascular: regular rate, rhythm Abdomen: normal bowel sounds, non tender, soft Extremities: + pertinent finding (R foot persistent erythema, warmth, edema, and TTP; R great toe removed; pulses intact) Neurologic/Psychiatric: alert, oriented x 3 Laboratory Results 06/12/17 06:44 Red Blood Count 4.11, Mean Corpuscular Volume 87.6, Mean Corpuscular Hemoglobin 29.7, Mean Corpuscular Hemoglobin Concent 33.9, Mean Platelet Volume 9.3, Neutrophils (%) (Auto) 59.4, Lymphocytes (%) (Auto) 28.3, Monocytes (%) (Auto) 9.6, Eosinophils (%) (Auto) 1.5, Basophils (%) (Auto) 0.3, Neutrophils # (Auto) 6.96, Lymphocytes # (Auto) 3.32, Monocytes # (Auto) 1.12, Eosinophils # (Auto) 0.17, Basophils # (Auto) 0.04 06/12/17 06:44 Test 06/12/17 06:44 White Blood Count 11.72 K/uL (4.8-10.8) Red Blood Count 4.11 M/uL (4.7-6.1) Hemoglobin 12.2 g/dL (14.0-18.0) Hematocrit 36.0 % (42-52) Mean Corpuscular Volume 87.6 fL (80-100) Mean Corpuscular Hemoglobin 29.7 pg (25-34) Mean Corpuscular Hemoglobin Concent 33.9 g/dl (32-36) Platelet Count 346 K/uL (130-400) Mean Platelet Volume 9.3 fL (7.4-10.4) Neutrophils (%) (Auto) 59.4 % Lymphocytes (%) (Auto) 28.3 % Monocytes (%) (Auto) 9.6 % Eosinophils (%) (Auto) 1.5 % Basophils (%) (Auto) 0.3 % Neutrophils # (Auto) 6.96 K/uL (1.4-6.5) Lymphocytes # (Auto) 3.32 K/uL (1.2-3.4) Monocytes # (Auto) 1.12 K/uL (0.11-0.59) Eosinophils # (Auto) 0.17 K/uL (0-0.5) Basophils # (Auto) 0.04 K/uL (0-0.2) RDW Standard Deviation 39.0 fL (36.4-46.3) RDW Coefficient of Variation 12.2 % (11.5-14.5) Immature Granulocyte % (Auto) 0.9 % Immature Granulocyte # (Auto) 0.11 K/uL (0.00-0.02) Anion Gap 4.0 mmol/L (3-11) Est Creatinine Clear Calc Drug Dose 226.4 ml/min Estimated GFR () > 150.0 Estimated GFR (Non- 138.9 BUN/Creatinine Ratio 17.0 (10-20) Calcium Level 8.4 mg/dl (8.5-10.1) Assessment and Plan 31 y/oM with hx of anxiety and back pain who presented with 5 days of R foot pain and inflammation s/p rolling foot and hitting it on weights. In the ER, R great toenail extracted with pus drainage which was sent for culture. Now on IV abx with stable vitals for cellulitis. Sepsis in the setting of R foot cellulitis - R leg Venous doppler - no DVT - R foot/ankle CT - no fracture, R ankle joint effusion and soft tissue edema - BCx x 2 06/10- NGTD - WCx - prelim - gram positive cocci - moderate - WBC improved to 11.72 with L shift - On Ceftriaxone 1g daily and Vanc - Tramadol 40mg PO for pain Q4H PRN - Ortho consulted - Severe ankle sprain (will take 6 weeks to heal) - follow up in office - MRI given extensive swelling and erythema - Acute complete tear (grade III sprain) of anterior talofibular ligament at the talar insertion site with acute grade I sprain of the calcaneofibular ligament. Short segment split tear of the peroneus brevis tendon for a length of 1.8 cm along its inframalleolar coarse. acute grade I/II strain of the peroneus brevis myotendinous junction. Edema - bone contusions without evidence of fracture. Moderate joint effusion. Anxiety - Clonidine 0.1mg Q6H PRN - Hydroxyzine 50mg QID PRN Chronic back pain - Continue Gabapentin Sleep - Continue Trazodone 100mg QHS Mild Anemia - stable - Hgb - 12.2 - Recommend outpatient PCP follow up Tobacco dependence - Nicotine patch ordered Full code DVT prophylaxis: Reyesx Resident Involvement: Resident Care Provided Care Provided: Adult Hospital Medicine History Resident Physician Supervision Note: I was present with Dr. Edmonds during the history and exam. I discussed the case with the resident and agree with the findings and plan as documented in the note. Any exceptions or clarifications are listed here. Pt reports improved pain and swelling of the right foot and ankle, though still unwilling to bear weight 2/2 pain concerns. Reports no f/c, STARKS, paresthesias. General Appearance: no apparent distress Respiratory: chest non-tender, lungs clear, normal breath sounds, no respiratory distress Cardiovascular: normal peripheral pulses, regular rate, rhythm, no murmur Extremities: other (improved swelling of the right ankle with TTP over the lateral malleolus improved from previous) Skin Characteristics: other (significantly improved intensity of erythema of the foot without appreciable drainage) Assessment/Plan 31 y/o male h/o chronic back pain, anxiety presents with swollen, painful right foot Right foot cellulitis - MRI w/o evidence of osteo. Transition to PO abx Right ankle sprain, grade III - per ortho recommendations, boot and crutches with outpatient follow up. Pain control with primary care. Chronic back pain - continue gabapentin Suspected substance abuse - monitor closely for changes in behavior and withdrawal sx. Consistent suboxone rx as outpatient per PDMP Anxiety - self reported without history of same. ONE TIME dose of 0.5mg ativan IV given. Unable to contact Tre yesterday evening, try again peridischarge Tobacco use - cessation encouraged, nicotine patch refused Anemia - monitor CBC daily and follow up as outpatient
[2017-06-12 10:24] VITALS: BP 135/85; PULSE 90; TEMP 36.8; O2SAT 99
[2017-06-12] MEDS ORDERED: VANCOMYCIN TROUGH ONE (13:30)
--- NOTE | 2017-06-12 14:35 | NUR ---
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 Dk Thomas on SaturdayJune 19 at 3:10 pm. This information was added to the DC instructions.
--- NOTE | 2017-06-12 14:43 | NUR ---
Pt. seen for Fit and deliver of a right ASO size LG. DX: right ankle sprain. Donning doffing wear and care given. Pt. did not ambulate.
--- NOTE | 2017-06-12 15:00 | NUR ---
ID: Pt AAOx4, pain tolerable with prn pain meds, right foot swollen/red/warm/elevated on 2x pillows. IVF infusing as ordered with intermittent IV abx. Voiding adequately. No surgical intervention at this time. Pt fitted for orthotic. Pt hoping to be d/c'd home today.
[2017-06-12 15:04] VITALS: BP 163/81; PULSE 98; TEMP 36.8; O2SAT 95
--- NOTE | 2017-06-12 15:39 | Pharmacy Progress Note ---
Pharmacy Antibiotic Prog Note Date of Service Jun 12, 2017. Subjective The patient is currently receiving vancomycin 2000 mg IV every 8 hours. The patient is currently on day # 2 of vancomycin IV therapy. Objective Height (Feet): 6 Height (Inches): 2.00 Weight (Kilograms): 90.400 Levels: Item Value Date Time Vancomycin Level Trough 11.2 mcg/ml 06/12/17 1333 Previous dose hung 06/12 @0529 . Lab Results (24hrs): Test 06/12/17 06:44 06/12/17 13:33 White Blood Count 11.72 K/uL (4.8-10.8) Red Blood Count 4.11 M/uL (4.7-6.1) Hemoglobin 12.2 g/dL (14.0-18.0) Hematocrit 36.0 % (42-52) Mean Corpuscular Volume 87.6 fL (80-100) Mean Corpuscular Hemoglobin 29.7 pg (25-34) Mean Corpuscular Hemoglobin Concent 33.9 g/dl (32-36) Platelet Count 346 K/uL (130-400) Mean Platelet Volume 9.3 fL (7.4-10.4) Neutrophils (%) (Auto) 59.4 % Lymphocytes (%) (Auto) 28.3 % Monocytes (%) (Auto) 9.6 % Eosinophils (%) (Auto) 1.5 % Basophils (%) (Auto) 0.3 % Neutrophils # (Auto) 6.96 K/uL (1.4-6.5) Lymphocytes # (Auto) 3.32 K/uL (1.2-3.4) Monocytes # (Auto) 1.12 K/uL (0.11-0.59) Eosinophils # (Auto) 0.17 K/uL (0-0.5) Basophils # (Auto) 0.04 K/uL (0-0.2) RDW Standard Deviation 39.0 fL (36.4-46.3) RDW Coefficient of Variation 12.2 % (11.5-14.5) Immature Granulocyte % (Auto) 0.9 % Immature Granulocyte # (Auto) 0.11 K/uL (0.00-0.02) Sodium Level 133 mmol/L (136-145) Potassium Level 4.4 mmol/L (3.5-5.1) Chloride Level 101 mmol/L (98-107) Carbon Dioxide Level 28 mmol/L (21-32) Anion Gap 4.0 mmol/L (3-11) Blood Urea Nitrogen 9 mg/dl (7-18) Creatinine 0.55 mg/dl (0.60-1.40) Est Creatinine Clear Calc Drug Dose 226.4 ml/min Estimated GFR () > 150.0 Estimated GFR (Non- 138.9 BUN/Creatinine Ratio 17.0 (10-20) Random Glucose 96 mg/dl (70-99) Calcium Level 8.4 mg/dl (8.5-10.1) Vancomycin Level Trough 11.2 mcg/ml (SEE COMMENT) Micro Results: 06/10/17 blood x2 pending 06/10 drainage foot- Group B beta strep, S.Aureus x2 sens pending Recent Pertinent Medications Item Value Date Time Vancomycin HCl 535 ml @ 200 mls/hr 06/12/17 2000 1750 mg/Sodium Q6@0200,0800,1400,2000/IV Chloride Ceftriaxone 50 ml @ 100 mls/hr 06/12/17 0100 Sodium 1 gm/ Q24H/IV 06/12/17 0118 Dextrose Vancomycin HCl 540 ml @ 200 mls/hr 06/11/17 1400 2000 mg/Sodium Q8/IV 06/12/17 1355 Chloride Vancomycin HCl 540 ml @ 200 mls/hr 06/11/17 0600 2000 mg/Sodium NOW ONCE/IV 06/11/17 0624 Chloride Ceftriaxone Sodium 1 gm 06/11/17 0029 (Rocephin Inj) NOW STAT/IV 06/11/17 0035 Assessment & Plan This drug level is: Subtherapeutic, since patient is clearing vancomycin rapidly. Will shorten dosing interval and increase total daily dose a bit. Change to vancomycin 1750 mg IV every 6 hours. Goal trough level estimate: between 15-20 mcg/mL. Will recheck trough in a few days if still receiving vancomycin. Pharmacy will continue to follow and will adjust dose/frequency as necessary. Thank you
[2017-06-12] MEDS ORDERED: CEPH500C2 PO (17:00)
[2017-06-12] MEDS ORDERED: SULF800T23 PO (17:02)
--- NOTE | 2017-06-12 17:20 | Discharge Instructions ---
Discharge Instructions Date of Service Jun 12, 2017. Admission Reason for Admission: Cellulitis Of Foot Discharge Discharge Diagnosis / Problem: Cellulitis of Foot Discharge Goals Goal(s): Decrease discomfort, Improve function Activity Recommendations Activity Limitations: resume your previous activity . Instructions / Follow-Up Instructions / Follow-Up You were admitted to [facility] from Jun 10 to Jun 12 2017 for cellulitis (an infection of the soft tissue). This was treated with IV antibiotics and you should continue on oral antibiotics as prescribed. You were evaluated by the orthopedic team (Dr Garnica) and diagnosed with grade 3 ankle sprain. Recommended to ambulate as much as possible with use of an ankle and crutches if needed for pain control and follow up in his office in 2 weeks. The office phone number is [phone] to make an appointment. It is recommended you keep your leg elevated when resting and use ice to decrease swelling (20 minutes maximum at a time). Smoking will decrease your ability to heal and fight infections. If you need help quitting smoking call [phone] ([phone]) or make an appointment with your primary care physician. Please follow up with your primary care physician within 1 week for a recheck of your cellulitis. Current Hospital Diet Patient's current hospital diet: Regular Diet Discharge Diet Recommended Diet: Regular Diet Pending Studies Studies pending at discharge: no Medical Emergencies . Who to Call and When: Medical Emergencies: If at any time you feel your situation is an emergency, please call 911 immediately. . Non-Emergent Contact Non-Emergency issues call your: Primary Care Provider . . "Provider Documentation" section prepared by Eduardo Paniagua. . VTE Core Measure Inpt VTE Proph given/why not?: Treatment not indicated
--- NOTE | 2017-06-12 19:00 | NUR ---
A: Toradol given an hour early per "OK" of Dr. Paniagua. Pt not sent home on pain medicine, so requested toradol prior to d/c. Saline lock removed. D/c paperwork given to patient/girlfriend. Ankle brace in place, patient's own crutches taken home. Taken by volunteer via wheelchair.
[2017-06-12] MEDS ORDERED: VANCOMYCIN IV 1,750 MG in SODIUM CHLORIDE 0.9% 500ML 500 ML IV SCH (20:00)
--- NOTE | 2017-06-12 20:01 | Discharge Summary ---
Discharge Summary Date of Service Jun 12, 2017. Discharge Summary Admission Date: Jun 11, 2017 at 10:33 Discharge Date: Jun 12, 2017 Discharge Disposition: Home Principal Diagnosis: Cellulitis R foot Problems/Secondary Diagnoses: R ankle sprain Anxiety Procedures: CT R foot/ankle MRI R foot/ankle Consultations: Orthopedics Medication Reconciliation New Medications: Cephalexin Monohydrate (Keflex) 500 Mg Cap 500 MG PO BID for 10 Days, #20 CAP Sulfa/Trimethoprim (Bactrim Ds 800MG/160MG) Tab 1 TAB PO BID for 10 Days, #20 TAB Continued Medications: Gabapentin (Neurontin) 800 Mg Tab 800 MG PO TID, TAB Trazodone Hcl (Trazodone) 100 Mg Tab 100 MG PO HS, TAB Discharge Exam Constitutional: No fever, No chills Respiratory: No shortness of breath Cardiovascular: No chest pain Abdomen: No pain, No nausea, No vomiting Male : No dysuria General Appearance: no apparent distress Neck: supple Respiratory/Chest: lungs clear, normal breath sounds Cardiovascular: regular rate, rhythm Abdomen: normal bowel sounds, non tender, soft Extremities: + pertinent finding (R foot persistent erythema, warmth, edema, and TTP; R great toe removed; pulses intact) Neurologic/Psychiatric: alert, oriented x 3 Hospital Course 31 y/oM with hx of anxiety and back pain who presented with 5 days of R foot pain and inflammation s/p rolling foot and hitting it on weights. In the ER, R great toenail extracted with pus drainage which was sent for culture. Treated on IV abx with stable vitals for cellulitis. Sepsis in the setting of R foot cellulitis - R leg Venous doppler - no DVT - R foot/ankle CT - no fracture, R ankle joint effusion and soft tissue edema - BCx x 2 06/10- NGTD - WCx - prelim - gram positive cocci - moderate - WBC improved to 11.72 with L shift - On Ceftriaxone 1g daily and Vanc - Discharged on Keflex 500mg BID x 10 days and Bactrim DS (800/160) BID x 10 days - Tramadol 40mg PO for pain Q4H PRN - Ortho consulted - Severe ankle sprain (will take 6 weeks to heal) - follow up in office - MRI given extensive swelling and erythema - Acute complete tear (grade III sprain) of anterior talofibular ligament at the talar insertion site with acute grade I sprain of the calcaneofibular ligament. Short segment split tear of the peroneus brevis tendon for a length of 1.8 cm along its inframalleolar coarse. acute grade I/II strain of the peroneus brevis myotendinous junction. Edema - bone contusions without evidence of fracture. Moderate joint effusion. Anxiety - Clonidine 0.1mg Q6H PRN - Hydroxyzine 50mg QID PRN Chronic back pain - Continued Gabapentin Sleep - Continued Trazodone 100mg QHS Mild Anemia - stable - Hgb - 12.2 - Recommend outpatient PCP follow up Tobacco dependence - Nicotine patch ordered Full code DVT prophylaxis: Lovenox Total Time Spent: Less than 30 minutes This includes examination of the patient, discharge planning, medication reconciliation, and communication with other providers. Discharge Instructions Please refer to the electronic Patient Visit Report (Discharge Instructions) for additional information. Additional Copies To Dk Thomas D.O. History Resident Physician Supervision Note: I was present with Dr. Edmonds during the history and exam. I discussed the case with the resident and agree with the findings and plan as documented in the note. Any exceptions or clarifications are listed here. For full attending history and examination, please see note from day of discharge. Assessment/Plan 31 y/o male h/o chronic back pain, anxiety presents with swollen, painful right foot Right foot cellulitis - MRI w/o evidence of osteo. Complete course of keflex/ bactrim Right ankle sprain, grade III - per ortho recommendations, boot and crutches with outpatient follow up. Pain control with primary care. Chronic back pain - continue gabapentin Suspected substance abuse - Consistent suboxone rx as outpatient per PDMP, no apparent h/o ativan/xanax prescription Anxiety - self reported without history of same. Unable to provide recent PCP for records Tobacco use - cessation encouraged, nicotine patch refused Anemia - follow up as outpatient
[2017-11-05] MEDS ORDERED: BUPR1SUB23 PO (15:47)
== END 2017-06-12 19:04 | disposition home or self-care (01) | DRG 872 ==
LOC: C.EDB 21:51 → C.MSN 06-11 02:56 → ENRESERV 06-11 03:09 → OBSVTOIN 06-11 10:33
PROVIDERS: ADMIT Internal Medicine; ATTEND Family Medicine
DX: A41.9 Sepsis, unspecified organism (principal); L03.115 Cellulitis of right lower limb; F17.200 Nicotine dependence, unspecified, uncomplicated; F41.9 Anxiety disorder, unspecified; D64.9 Anemia, unspecified; M54.9 Dorsalgia, unspecified; S93.401A Sprain of unspecified ligament of right ankle, initial encounter; X58.XXXA Exposure to other specified factors, initial encounter

== ENCOUNTER 2017-06-20 16:58 | Emergency (ER) | payer OTHER ==
[~2017-06-20] VITALS: Ht 188 cm; Wt 91.0 kg
[~2017-06-20 16:58] MED LIST changes: +CEPH500C2 PO; +GABA800T PO; -LRT5 PO; +SULF800T23 PO; +TRAZ100T29 PO
[2017-06-20 17:18] VITALS: TEMP 36.6; Ht 188 cm; Wt 91.0 kg
[2017-06-20] MEDS ORDERED: KETOROLAC TROMETHAMINE 60 MG/2 ML VIAL IM STA (17:55)
[2017-06-20] MEDS ORDERED: LORAZEPAM 1 MG TAB SL STA (17:55)
--- NOTE | 2017-06-20 18:53 | DIAGNOSTIC IMAGING REPORT ---
R VENOUS DOPP LOWER EXT UNILAT CLINICAL HISTORY: right leg pain, swelling, recent ankle injury pain. Edema. TECHNIQUE: Venous Doppler COMPARISON STUDY: 06/11/2017 FINDINGS: Normal study. No change in the prior exam. IMPRESSION: Normal study The above report was generated using voice recognition software. It may contain grammatical, syntax or spelling errors. Electronically signed by: Jayson Ramos M.D. 06/20/2017 6:52 PM Dictated Date/Time: 06/20/2017 6:51 PM
[2017-06-20] MEDS ORDERED: TRAM-453 PO (19:22)
[2017-06-20] MEDS ORDERED: DICL1GEL12 TOP (19:25)
--- NOTE | 2017-06-20 19:25 | EMERGENCY ROOM VISIT NOTE ---
History First contact with patient: 17:21 Chief Complaint: ANKLE PAIN Stated Complaint: R ANKLE SEVERE PAIN History of Present Illness The patient is a 31 year old male who presents to the Emergency Room with complaints of severe right ankle pain. The patient reports that he injured his ankle a few weeks ago and was told that he had torn ligaments. He followed up with Dr. Garnica. He reports that his pain had started to improve, but has been worsening over the past several days. He has no pain medication to take at home. He is been taking ibuprofen without relief. He rates discomfort a 10/ 10. He states that the pain is giving him "panic attacks" and is making it difficult for him to sleep. He has an appointment scheduled with his primary care provider in 3 days. He denies any fevers/chills, numbness or weakness. He does state that the pain sometimes radiates into the calf. Review of Systems A complete 10 point review of systems was reviewed with the patient with pertinent positives and negatives as per history of present illness. All else were negative. Past Medical/Surgical History Medical Problems: (1) Cellulitis of foot Social History Smoking Status: Current Every Day Smoker Current/Historical Medications Scheduled Cephalexin Monohydrate (Keflex), 500 MG PO BID Diclofenac Sodium (Topical) (Voltaren 1% Top Gel), 1 APPLN TOP TID Gabapentin (Neurontin), 800 MG PO TID Sulfa/Trimethoprim (Bactrim Ds 800MG/160MG), 1 TAB PO BID Tramadol Hcl (Ultram), 50 MG PO Q4H Trazodone Hcl (Trazodone), 100 MG PO HS Physical Exam Vital Signs Date Time Temp Pulse Resp B/P (MAP) Pulse Ox O2 Delivery O2 Flow Rate FiO2 06/20/17 19:39 78 20 123/69 98 06/20/17 17:18 36.6 105 22 130/105 98 Room Air Physical Exam VITALS: Vitals are noted on the nurse's note and reviewed by myself. Vital signs stable. GENERAL: This is a 31-year-old male, in no acute distress, nondiaphoretic, well- developed well-nourished. MUSCULOSKELETAL: There is moderate edema and ecchymosis over the right ankle, primarily over the lateral malleolus. There is tenderness to palpation to the lateral and anterior right ankle. Dorsalis pedis pulse 2+. Capillary refill within 2 seconds. NEURO: Patient was alert and oriented to person place and time. Medical Decision & Procedures ER Provider Diagnostic Interpretation: R VENOUS DOPP LOWER EXT UNILAT CLINICAL HISTORY: right leg pain, swelling, recent ankle injury pain. Edema. TECHNIQUE: Venous Doppler COMPARISON STUDY: 06/11/2017 FINDINGS: Normal study. No change in the prior exam. IMPRESSION: Normal study Medications Administered Medications (Trade) Dose Ordered Sig/Hugo Route Start Time Stop Time Status Last Admin Dose Admin Lorazepam (Ativan Tab) 1 mg NOW STAT SL 06/20/17 17:55 06/20/17 17:56 DC 06/20/17 18:13 1 MG Ketorolac Tromethamine (Toradol Inj) 60 mg NOW STAT IM 06/20/17 17:55 06/20/17 17:56 DC 06/20/17 18:14 60 MG Medical Decision Differential diagnosis includes ankle sprain, DVT, infection, among others. The patient was evaluated as above. Ultrasound was performed and ruled out DVT. He was recently hospitalized for infection of his toe and did have an orthopedic consultation at that time. He did sustain a severe ankle sprain. The patient has follow-up scheduled with orthopedics. He is requesting something for pain and Ativan. I did give him 1 tablet of Ativan here as well as Toradol but I am not comfortable prescribing him Ativan at home. He was given a small prescription for tramadol. He will follow-up with orthopedics as scheduled. He verbalized understanding of my assessment and treatment plan was discharged home in good condition. [place] Drug Monitoring Program Search Results: patient reviewed within database (patient receives Suboxone monthly) Medication Reconcilliation Current Medication List: was personally reviewed by me Blood Pressure Screening Patient's blood pressure: Elevated blood pressure Blood pressure disposition: Elevated BP felt to be situational Impression Primary Impression: Right ankle pain Departure Information Dispostion Home / Self-Care Condition GOOD Prescriptions Diclofenac Sodium (Topical) (VOLTAREN 1% TOP GEL) 1 % Gel 1 APPLN TOP TID, #100 GM Prov: Nidhi Philippe PA-C 06/20/17 Tramadol Hcl (ULTRAM) 50 Mg Tab 50 MG PO Q4H for Pain for 3 Days, #12 TAB For Initial Treatment Prov: Nidhi Philippe PA-C 06/20/17 Referrals No Doctor, Assigned (PCP) Dylan Garnica, DO Patient Instructions My [facility] Additional Instructions You may apply the Voltaren gel to the area of pain up to 3 times daily as needed for pain. Tramadol as needed for pain. For pain control, you can use the following [id number] medicines (if >12 yo): - Regular strength (325mg/tab) Tylenol (acetaminophen) 2 tabs every 4-6 hours as needed. Do not exceed 12 tablets in a 24 hour period. Avoid taking more than 4 grams (4000 mg) of Tylenol per day. This includes any other sources of acetaminophen you may take on a regular basis. - Regular strength (200 mg/tab) Advil (ibuprofen) 1-2 tabs every 4-6 hours as needed. Do not exceed a dose of 3200 mg per day. Contact orthopedics for follow-up. Follow-up with your primary care provider as scheduled. Return to the emergency department with any worsening or new/concerning symptoms. Problem Qualifiers Primary Impression: Right ankle pain
[2017-06-20 19:39] VITALS: BP 123/69; PULSE 78; O2SAT 98
== END 2017-06-20 19:40 | disposition home or self-care (01) ==
LOC: C.EDB 17:00 → C.EDD 19:40
DX: M25.571 Pain in right ankle and joints of right foot (principal); F17.210 Nicotine dependence, cigarettes, uncomplicated; Z79.899 Other long term (current) drug therapy

== ENCOUNTER 2017-08-20 17:14 | Inpatient (IN) | payer OTHER ==
[~2017-08-20] VITALS: Ht 188 cm; Wt 87.0 kg
[~2017-08-20 17:14] MED LIST changes: -CEPH500C2 PO; -SULF800T23 PO
[2017-08-20 17:30] VITALS: BP 147/95; PULSE 111; TEMP 36.7; O2SAT 96; Ht 188 cm; Wt 87.0 kg
[2017-08-20] MEDS ORDERED: TRAZ100T29 PO (18:28)
[2017-08-20] MEDS ORDERED: GABA800T PO (18:28)
[2017-08-20] MEDS ORDERED: CONSULT PHARMACY STA (18:29)
[2017-08-20] MEDS ORDERED: ZOLPIDEM TARTRATE 5 MG TAB PO PRN (18:30)
[2017-08-20] MEDS ORDERED: MAGNESIUM HYDROXIDE SUSP 30 ML UDC PO PRN (18:30)
[2017-08-20] MEDS ORDERED: ALUMINUM/MAGNESIUM SUSP 30 ML UDC PO PRN (18:30)
[2017-08-20] MEDS ORDERED: ONDANSETRON INJ 2 MG/ML 2 ML VIAL IV PRN (18:30)
[2017-08-20] MEDS: D5W AND 1/2NSS 1,000 ML IV SCH (19:32)
[2017-08-20 19:35] LABS: HEMATOCRIT 47.2 % (42-52); MEAN CELL VOLUME 85.7 fL (80-100); MEAN CORPUSCULAR HGB CONC 33.9 g/dl (32-36); MEAN PLATELET VOLUME 10.8 fL (7.4-10.4); PLATELET COUNT 233 K/uL (130-400); RED CELL DISTRIBUTION WIDTH CV 13.9 % (11.5-14.5); RED CELL DISTRIBUTION WIDTH SD 42.9 fL (36.4-46.3); WHITE BLOOD COUNT 9.38 K/uL (4.8-10.8)
[2017-08-20] MEDS: CEFAZOLIN IV 1,000 MG in SYRINGE 0 ML IV SCH (19:35)
[2017-08-20] MEDS: HYDROCODONE/ACETAMIN 5/325MG TAB PO PRN (19:46)
[2017-08-20 20:14] LABS: CALCIUM 9.8 mg/dl (8.5-10.1); CREATININE 0.75 mg/dl (0.60-1.40); POTASSIUM 3.8 mmol/L (3.5-5.1)
[2017-08-20] MEDS ORDERED: NURSING VERBAL MED ORDER ONE (20:15)
[2017-08-20] MEDS: LORAZEPAM 1 MG TAB PO PRN (20:40)
[2017-08-20] MEDS: DOCUSATE SODIUM 100 MG CAP PO SCH (20:41)
[2017-08-20 23:05] VITALS: BP 115/76; PULSE 96; TEMP 36.9; O2SAT 96
[2017-08-20] MEDS: MoRPHine SULFATE 4 MG/ML 1 ML CARP\\VIAL IV PRN (23:20)
[2017-08-21] MEDS: CEFAZOLIN IV 1,000 MG in SYRINGE 0 ML IV SCH ×3 (03:35→18:27)
[2017-08-21] MEDS: MoRPHine SULFATE 4 MG/ML 1 ML CARP\\VIAL IV PRN ×6 (03:44→23:08)
[2017-08-21] MEDS: LORAZEPAM 1 MG TAB PO PRN ×2 (07:16→15:39)
[2017-08-21] MEDS: D5W AND 1/2NSS 1,000 ML IV SCH ×2 (07:17→20:23)
[2017-08-21] MEDS: DOCUSATE SODIUM 100 MG CAP PO SCH ×2 (07:17→20:22)
[2017-08-21 07:18] VITALS: BP 128/74; PULSE 84; TEMP 36.7; O2SAT 97
--- NOTE | 2017-08-21 11:10 | Progress Note ---
Progress Note Date of Service Aug 21, 2017. Progress Note ID Consult Dictated #[id number] A/P: 1. Foot ulcer - right ankle -Continue abx, follow OR findings, OR cultures -Will follow, thank you
--- NOTE | 2017-08-21 11:11 | INFECT. DISEASE CONSULTATION ---
DATE OF CONSULTATION: 08/21/2017 HISTORY OF PRESENT ILLNESS: This is a 31-year-old gentleman who was admitted to the hospital for a right ankle ulceration. There is no current documentation. He states that this has been ongoing. He states that he was incarcerated up until yesterday and was recently released from nursing home. He cannot tell me how long the ulcer has been present. He states he was on antibiotics sometime ago, but cannot remember the names, but most recently, has not had any antibiotic therapy. He denies any fevers or chills. He denies any chest pain, cough, shortness of breath, nausea, vomiting or diarrhea. He states that he was previously on Neurontin, but was not receiving this while incarcerated. He also states he has a history of hypertension, but does not treat this with medication. Currently, he reports only pain in the right ankle. He is for surgery later today. His remaining review of systems is unremarkable. PAST MEDICAL HISTORY: He states is significant for hypertension, which he controls with Ativan. He also has anxiety disorder and chronic back pain. PAST SURGICAL HISTORY: Unremarkable. FAMILY HISTORY: Unremarkable. SOCIAL HISTORY: Significant for tobacco use. He denies any alcohol or drug use. He recently was incarcerated and released yesterday. ALLERGIES: He denies any drug allergies. CURRENT MEDICATIONS: Include Colace, Ativan, morphine, Ancef, Benadryl, Ambien, Zofran, Maalox, milk of magnesia, and Percocet. PHYSICAL EXAMINATION: VITAL SIGNS: He is afebrile, pulse 84, respiratory rate 14, blood pressure 128/74, oxygen saturation is 97% on room air. GENERAL: He is awake, alert and oriented x3. He is in no acute distress. HEENT: Mucous membranes are moist. Extraocular muscles are intact. HEART: Regular. LUNGS: Clear. ABDOMEN: Soft. EXTREMITIES: There is no edema. Examination of the right ankle reveals an ulceration over the lateral malleolus. There is no surrounding induration, warmth, erythema, fluctuance or tenderness, but there is bleeding noted. LABORATORY STUDIES: CBC yesterday reveals a white blood cell count of 9.3, hemoglobin 16, platelets 233. Chemistry panel; sodium 140, potassium 3.8, chloride 103, bicarbonate 28, BUN 7, creatinine 0.7, glucose is 71. He has an old culture from June 10, which is of a right toe. At that time, he grew group B strep and 2 species of MSSA. He states he was treated with an unknown course of antibiotics for this. There is no imaging from this admission to review. Lateral ankle ulceration. He will be maintained on empiric antibiotics pending culture results and operative findings. He states he is due to go to the OR later today. Thank you for this consultation.
--- NOTE | 2017-08-21 13:12 | HISTORY & PHYSICAL EXAMINATION ---
DATE OF ADMISSION: 08/20/2017 CHIEF COMPLAINT: Pain in the right foot. HISTORY OF PRESENT ILLNESS: The patient is a 31-year-old white male who was seeing Dr. Garnica initially for fracture of the ankle and the patient states that he has been in a brace. Apparently, over time, he developed an irritated area over the lateral malleolus and soon, this became open. Dr. Garnica referred the patient to Dr. Gandara. Dr. Gandara saw the patient in the office yesterday and after examining the ulceration, felt that he needed to be admitted for IV antibiotics and also irrigation and debridement of this ulcerative area. PAST MEDICAL HISTORY: Hypertension, which he states is mostly due to anxiety and is usually controlled with Ativan. Obviously history of anxiety disorder and some chronic back pain in the past. PAST SURGICAL HISTORY: None. FAMILY HISTORY: Noncontributory. SOCIAL HISTORY: The patient does use tobacco, but denies alcohol use. He was recently incarcerated and was released yesterday. MEDICATIONS: Home meds include gabapentin 800 mg p.o. t.i.d. and trazodone 100 mg p.o. at bedtime. ALLERGIES: NKDA. REVIEW OF SYSTEMS: No recent fevers or chills. No night sweats or unexplained weight loss or weight gain. No flu or cold-like symptoms. No increased cough or sputum production. No increased shortness of breath at rest or on exertion. No chest pain, chest pressure, or irregular heartbeat. No abdominal pain. No unusual nausea, vomiting, or diarrhea. No history of peptic ulcer disease. No history of GERD, melena, hematochezia or hematemesis. Denies any history of renal calculi, hematuria, pyuria, dysuria or frequent urinary tract infection. Denies any history of migraine headaches or seizure disorder. No history of CVA or TIA. PHYSICAL EXAMINATION: VITAL SIGNS: Currently, vital signs done this morning showed temp 36.7, pulse 84, respirations 14, BP 122/74, and pulse ox 97% on room air. GENERAL: The patient is a well-developed and well-nourished white male, who is alert and oriented x3 and in no acute distress, pleasant and cooperative. SKIN: Warm and dry. Turgor is good. HEENT: Head is normocephalic and atraumatic. There is no scleral icterus or injection. Nasal airway is patent. Oral mucosa is pink and moist. NECK: Supple. HEART: Regular rate and rhythm. LUNGS: Clear to auscultation. ABDOMEN: Soft, flat, and nontender. Bowel sounds are present x4. GENITALIA AND RECTAL: Not performed at this time. EXTREMITIES: On examination of the patient's right lower extremity, he has an Kennedy bandage over the right ankle. This is removed and 4 x 4s are noted to have a small amount of drainage on them. There is a small ulcerated area over the lateral malleolus, approximately a cm in width. There is no overt erythema. He has no obvious fluctuance to the area and minimal discomfort on palpation at this time. Otherwise, right lower extremity is essentially benign at this time other than he does have increased pain in the ankle itself from previous fractures and also apparent ligamentous damage that he has had sustained from previous fall in May. Left lower extremity is essentially within normal limits and range of motion is within normal limits at this time. Upper extremities bilaterally have equal strength and also range of motion is within normal limits. There is no gross motor or sensory deficits seen at this time. ASSESSMENT: Ulceration, right lateral malleolus. Abscess lateral ankle. Peroneal tendon tears. Possible septic ankle. PLAN: The patient was started on IV antibiotics and will be taken to the operating room by Dr. Gandara today for irrigation and debridement. ERICA
[2017-08-21 15:17] VITALS: BP 133/86; PULSE 90; TEMP 36.8; O2SAT 99
--- NOTE | 2017-08-21 17:45 | Progress Note ---
Progress Note Date of Service Aug 21, 2017. Progress Note Patient is a 31 year old M who sustained a fall and ankle fracture in May which was treated non operatively at the time. Since then, he has developed a non-healing ulceration over the ankle and is scheduled for arthroscopic washout and placement of antibiotic beads with Dr Gandara. Medical history is significant only for a history of cigarette smoking and anxiety. He has previously tolerated GA for a knee scope without incident. He has no known cardiopulmonary disease and good exercise tolerance. Of note, he was just released from a 30 day stay in [facility] as of yesterday. He has no systemic signs of sepsis. Labs and studies were reviewed. Airway exam is reassuring. I anticipate that the patient is a low risk candidate for general anesthesia for the proposed surgery. Risks and benefits were reviewed, all questions were answered, and informed consent was obtained.
[2017-08-21 23:15] VITALS: BP 131/75; PULSE 82; TEMP 36.8; O2SAT 94
[2017-08-22] VITALS (10 sets, daily range): BP systolic 116–158; BP diastolic 65–89; PULSE 85–140; TEMP 36.5–37; O2SAT 95–98
[2017-08-22] MEDS: CEFAZOLIN IV 1,000 MG in SYRINGE 0 ML IV SCH ×3 (02:42→23:15)
[2017-08-22] MEDS: MoRPHine SULFATE 4 MG/ML 1 ML CARP\\VIAL IV PRN ×3 (02:42→19:13)
[2017-08-22] MEDS ORDERED: ROPIVACAINE 0.5% 5 MG/ML 30 ML VIAL ONE (06:25)
[2017-08-22] MEDS ORDERED: PROPOFOL IV EMULSION 10 MG/ML 20 ML VIAL IV ONE (06:31)
[2017-08-22] MEDS ORDERED: LIDOCAINE HCL 2% 2 ML VIAL (20MG/ML) ONE (06:31)
[2017-08-22] MEDS ORDERED: ONDANSETRON INJ 2 MG/ML 2 ML VIAL ONE (06:31)
[2017-08-22] MEDS ORDERED: MIDAZOLAM HCL 1 MG/ML 2ML VIAL ONE (06:31)
[2017-08-22] MEDS ORDERED: FENTANYL CITRATE INJ 50 MCG/1 ML 2 ML VIAL ONE ×3 (06:31→09:37)
[2017-08-22] MEDS ORDERED: BACITRACIN 50000 UNIT VIAL ONE (06:53)
[2017-08-22] MEDS ORDERED: BUPIVACAINE 0.5 % 5 MG/1 ML MPF 30ML VIAL ONE (06:53)
[2017-08-22] MEDS ORDERED: BUPIVACAINE/EPINEPHRINE 0.5% MPF 1:200,000 30 ML VIAL ONE (06:53)
[2017-08-22] MEDS ORDERED: EpINEphrine HCL INJ 1 MG/ML 1ML SYRINGE ONE (06:53)
[2017-08-22] MEDS: DOCUSATE SODIUM 100 MG CAP PO SCH ×2 (06:55→21:18)
--- NOTE | 2017-08-22 07:18 | History & Physical Bridge Note ---
H&P Re-Evaluation Bridge Note: I have examined the patient, reviewed the History & Physical and in the interval since the performance of the History & Physical I have noted the following changes of clinical significance: No changes noted
[2017-08-22] MEDS ORDERED: VANCOMYCIN HCL 1000MG/20ML VIAL ONE ×2 (07:24→08:08)
[2017-08-22] MEDS ORDERED: GENTAMICIN SULFATE 40 MG/ML 2 ML VIAL ONE ×3 (07:24→08:14)
[2017-08-22] MEDS ORDERED: DEXAMETHASONE SOD INJ 4 MG/ML VIAL ONE (07:38)
[2017-08-22] MEDS ORDERED: ONDANSETRON INJ 2 MG/ML 2 ML VIAL IV PRN (08:00)
[2017-08-22] MEDS ORDERED: EpHEDrine SULFATE INJ 50 MG/ML AMP IV PRN (08:00)
[2017-08-22] MEDS ORDERED: ATROPINE SULFATE 0.1 MG/ML 5ML SYR IV PRN (08:00)
[2017-08-22] MEDS ORDERED: PHENYLEPHRINE 100MCG/ML 5ML SYR IV PRN (08:00)
[2017-08-22] MEDS ORDERED: NURSING VERBAL MED ORDER STA (08:19)
[2017-08-22] MEDS ORDERED: CEFAZOLIN 1000MG IV PUSH 7.5 ML IV ONE (08:30)
--- NOTE | 2017-08-22 09:40 | [facility] Post Operative Brief Note ---
Immediate Operative Summary Operative Date Aug 22, 2017. Pre-Operative Diagnosis Right lateral ankle open Ulceration, Abscess lateral ankle, peroneal tendon tears, possible septic ankle joint Post-Operative Diagnosis Right lateral ankle open Ulceration, Abscess lateral ankle, peroneus longus and brevis tendon tears, arthrofibrosis ankle joint, synovitis ankle, Peroneus longus and brevis tenosynovitis, hemarthrosis ankle joint Procedure(s) Performed Evacuation Abscess Lateral Ankle, Debridement Ulceration Lateral Ankle, Debridement and Tenosynovectomy Peroneus and beroneus brevis Tendons, Tendonesis Peroneus Longus to peroneus brevis, Implantation Stimulan Antibiotic Beads, Arthroscopy Right Ankle, Evacuation of Hemarthrosis ankle, Debridement of Arthrofibrosis, Synovectomy Right Ankle Surgeon Dr. Gandara Mail Manager Surgeon(s) None Estimated Blood Loss 3 mL Findings Consistent with Post-Op Diagnosis Specimens Microbiology #3-[id number] ankle, right: gram stain, routinue culture and sensitivity, anaerobic Microbiology #2-Right ankle peronal tendon: gram stain, routinue culture and sensitivity, anaerobic Drains HV x 2 Anesthesia Type General (local) Complication(s) none Disposition Accompanied Pt To Recover: no Disposition: Recovery Room / PACU
[2017-08-22] MEDS: HYDROmorphone INJ 2 MG/ML SYR/VIAL IV PRN ×6 (09:48→10:15)
[2017-08-22] MEDS ORDERED: LORAZEPAM 2 MG/ML 1 ML VIAL ONE (09:54)
--- NOTE | 2017-08-22 11:06 | Anesthesiology Progress Note ---
Anesthesia Post Op Note Date & Time Aug 22, 2017 at 11:05 Vital Signs Pain Intensity: 8 Vital Signs Past 12 Hours Date Time Temp Pulse Resp B/P (MAP) Pulse Ox O2 Delivery O2 Flow Rate FiO2 08/22/17 10:25 37 108 20 142/90 100 Oxymask 08/22/17 10:00 120 20 137/80 100 Oxymask 08/22/17 09:50 108 20 141/101 100 Oxymask 7 08/22/17 09:44 37 103 20 127/103 100 Oxymask 7 08/22/17 06:34 36.6 85 16 124/81 (95) Room Air 08/21/17 23:50 Room Air 08/21/17 23:15 36.8 82 16 131/75 (93) 94 Room Air Notes Mental Status: alert / awake / arousable, participated in evaluation Pt Amnestic to Procedure: Yes Nausea / Vomiting: adequately controlled Pain: adequately controlled Airway Patency, RR, SpO2: stable & adequate BP & HR: stable & adequate Hydration State: stable & adequate Anesthetic Complications: no major complications apparent
--- NOTE | 2017-08-22 11:09 | OPERATIVE REPORT ---
DATE OF OPERATION: 08/22/2017 PREOPERATIVE DIAGNOSES: 1. Right ankle open the lateral Ulceration. 2. Abscess, lateral ankle. 3. Tears of the peroneus longus and brevis tendons effusion with possible septic ankle joint. POSTOPERATIVE DIAGNOSES: 1. Right ankle open lateral ulceration. 2. Abscess, lateral ankle. 3. Peroneus brevis and peroneus longus tendon tears. 4. Septic tenosynovitis of the peroneus longus and peroneus brevis. 5. Hemarthrosis of the ankle. 6. Arthrofibrosis of the ankle. 7. Synovitis of the ankle. PROCEDURE: 1. Right ankle arthroscopy with debridement of arthrofibrosis. 2. Synovectomy, ankle. 3. Evacuation of hemarthrosis. 4. Open debridement of peroneus longus and brevis. 5. Open tenosynovectomy of the peroneal tendons. 6. Tenodesis of the peroneus longus and peroneus brevis tendons. 7. Evacuation abscess, lateral ankle. 8. Debridement lateral ankle ulceration including skin, fascia and subcutaneous fat. 9. Implantation of antibiotic Stimulan beads containing vancomycin and gentamicin. SURGEON: Dr. Gandara. TIMBER FRAMER HELPER: None. ANESTHESIA: General with local. SPECIMENS: 1. Aerobic, anaerobic, Gram stain, intraarticular, right ankle. 2. Aerobic, anaerobic, Gram stain abscess, right lateral ankle. DRAINS: Hemovac x2, one in the ankle joint and one adjacent to the peroneal tendon sheath. COMPLICATIONS: None. BLOOD LOSS: 3 mL. PERTINENT HISTORY: This is a 31-year-old who had sustained injury to his right ankle. He was under the care of Dr. Dylan Garnica and was being treated conservatively for peroneal tendon tears and lateral ankle ligament tear. The patient was then eventually incarcerated and was then seen by Dr. Garnica on 08/20/2017 in his office. He noted he had a draining ulceration of the lateral aspect of the ankle and he contact my office for assistance. I then accepted the care of the patient. He was seen in my office the same day on 08/20/2017 and noted to have an ulceration in lateral aspect of his ankle with obvious abscess formation. I reviewed his MRIs, he was noted to have lateral ankle ligament tears with abundant effusion of the ankle joint and peroneal tendon tears. The patient was then admitted to the hospital that day on IV antibiotics for preparation for surgery and infectious disease consultation was also obtained. The patient was scheduled for surgery as indicated. The patient was unable to have surgery yesterday on 08/21/2017 due to overload cases in the operative suite. The patient was then transitioned to 08/22/2017 for his surgery, per the anesthesiologist and pending availability of OR time. All potential risks, benefits, complications, alternatives, rehab, potential for incomplete relief of symptoms, need for further surgery, DVT, PE, , persistent pain, swelling, scarring, weakness, neurovascular, wound complications and potential for amputation were discussed with the patient. The patient decided to proceed with the procedure as indicated. DESCRIPTION OF PROCEDURE: The patient was taken to the operative suite, placed supine on the operating room table. After review of the consent and identification of proper operative site, the patient was anesthetized, LMA was placed. A tourniquet was applied high on the right lower extremity over cast padding. Right lower extremity was then sterilely prepped and draped in the usual fashion. The limb was elevated and there was no exsanguination performed due to the infection of the right lower extremity. Tourniquet was inflated to 325 mmHg. The ankle joint was injected with approximately 12 mL of 0.5% Marcaine with epinephrine. A small incision was made in the anterior aspect of the ankle just medial to the tibialis anterior followed by placement of a blunt trocar and sleeve camera and inflow. Next, under direct visualization, lateral portals established using an 18 gauge spinal needle, an 11 blade scalpel incision following placement of a 3.5 mm sucker shaver. There was noted to be significant hemarthrosis throughout the ankle joint. This was evacuated with a sucker shaver and a culture was then obtained fluid from the right ankle. There was noted to be significant arthrofibrosis throughout the joint and then a 3.5 mm sucker shaver was then used to resect arthrofibrosis. There was noted to be hypertrophic synovitis and at this point synovectomy was performed of the ankle joint. The chondral surfaces were inspected and noted to have some softening grade 1 chondromalacia; however, there was no evidence of flap tearing or any areas of osteochondral significant defects. After approximately 4.5 liters of lavage solution with bacitracin was passed through the joint, a 10.5 Bhutanese Hemovac drain was then placed into the joint under direct visualization through the lateral portal. All excess fluid was expressed from the joint. Medial portal was closed using a 4-0 nylon, the lateral portal was gently coapted with a horizontal mattress stitch to prevent the drain from inadvertently pulling out over the drain was specifically sewn into the wound. Next, attention was then directed toward the lateral ulceration, noted to be approximately 1 cm diameter, obvious purulent drainage was noted. Incision was made proximal and distal to the ulceration along the course of the peroneal tendon sheath. Noted to be abscess proximal to the ulceration. After careful sharp dissection through the incision site, electrocautery was used to cauterize any bleeding vessels and the abscess was then entered more proximal to the ulceration. This was evacuated with a rongeur and a culture was obtained for aerobic, anaerobic, Gram stain. There was noted to be obvious peroneal tendon tears. There was an area of deficit of the peroneal tendon sheath adjacent to the ulceration. The peroneal tendon sheath was then opened proximally and distally with a 15 blade scalpel, revealing the peroneal tendons noted be abundant tenosynovitis, hypertrophic with a complete rupture of the peroneus brevis and a partial tearing of the peroneus longus tendon. Next, a 15 blade scalpel was used to debride the devitalized tendon of the peroneus longus and peroneus brevis. Tenosynovectomy was performed of the peroneus longus and peroneus brevis with a tenotomy scissors and a rongeur. Once more healthy appearing tendon was debrided down to, this was copiously irrigated with pulsatile lavage. After complete evacuation of the abscess and removal of all tenosynovitis. Approximately 3 liters with bacitracin was used to irrigate the lateral ankle followed by exchange of top gloves and top sheet. The ulceration was then debrided around its periphery with a rongeur, sharply debrided with a 15 blade scalpel and healthy appearing tissue after excision of necrotic tissue. This was performed through skin and subcutaneous fat and fascia. Next, Stimulan antibiotic laden beads with vancomycin and gentamicin were then fashioned and then approximately 5 mL of beads were placed within the peroneal tendon sheath and then outside the tendon sheath. Next, tenodesis was then performed of the peroneus longus to the peroneus brevis using interrupted horizontal mattress 3-0 nylon sutures. Nylon was used to the present infection and attempting to avoid placing braided suture in the area adjacent to the abscess. This was then followed by closure of the peroneal tendon sheath with interrupted 2-0 Vicryl sutures. The dermis was closed using buried 2-0 Vicryl sutures after Stimulan beads were distributed throughout the incision site. Stimulan beads were then packed into the ulceration of the lateral aspect of the ankle and was noted to be skin loss of approximately 1 cm diameter and a bead pouch was created using a small piece of Adaptic, which was sewn into the ulceration site to cover with interrupted 3-0 nylon simple sutures. Next, the lateral incision line was covered with Xeroform gauze, the portal sites for the arthroscope were then also covered with Xeroform gauze and a sterile compressive dressing and posterior fiberglass splint was applied overwrapped with an Kennedy wrap foot held in neutral dorsiflexion. The tourniquet was released. The patient was awakened and taken to recovery in stable condition. I attest to the content of the Intraoperative Record and any orders documented therein. Any exception s are noted below.
[2017-08-22] MEDS: D5W AND 1/2NSS 1,000 ML IV SCH ×2 (12:47→23:15)
[2017-08-22] MEDS: LORAZEPAM 1 MG TAB PO PRN (14:00)
--- NOTE | 2017-08-22 14:02 | Progress Note ---
Subjective Date of Service: Aug 22, 2017. Subjective s/p OR debridement this morning, cultures pending, gpc x 1. on emperic ancef, recent h/o MSSA. abscess drainage, tenosynovitis noted. Problem List Medical Problems: (1) Cellulitis of right lower extremity Status: Acute Objective Vital Signs Date Time Temp Pulse Resp B/P (MAP) Pulse Ox O2 Delivery O2 Flow Rate FiO2 08/22/17 12:52 127 16 136/73 (94) 96 Room Air 08/22/17 11:45 127 16 152/81 (104) 96 Room Air 08/22/17 11:17 118 16 137/74 (95) 95 Room Air 08/22/17 10:45 36.5 118 16 158/89 (112) 95 Room Air 08/22/17 10:45 95 Room Air 08/22/17 10:45 95 Room Air 08/22/17 10:25 37 108 20 142/90 100 Oxymask 08/22/17 10:00 120 20 137/80 100 Oxymask 08/22/17 09:50 108 20 141/101 100 Oxymask 7 08/22/17 09:44 37 103 20 127/103 100 Oxymask 7 08/22/17 06:34 36.6 85 16 124/81 (95) Room Air 08/21/17 23:50 Room Air 08/21/17 23:15 36.8 82 16 131/75 (93) 94 Room Air 08/21/17 15:17 36.8 90 18 133/86 (102) 99 Room Air 08/21/17 15:15 Room Air Assessment and Plan (1) Tenosynovitis of ankle Assessment & Plan: continue IV ancef for now, await culture results
[2017-08-22] MEDS: HYDROCODONE/ACETAMIN 5/325MG TAB PO PRN ×2 (15:42→23:12)
[2017-08-23] VITALS (8 sets, daily range): BP systolic 142–166; BP diastolic 71–96; PULSE 95–116; TEMP 36.8–36.9; O2SAT 96–99
[2017-08-23] MEDS: MoRPHine SULFATE 4 MG/ML 1 ML CARP\\VIAL IV PRN ×4 (01:51→22:19)
[2017-08-23] MEDS: HYDROCODONE/ACETAMIN 5/325MG TAB PO PRN ×3 (06:05→19:18)
[2017-08-23] MEDS: CEFAZOLIN IV 1,000 MG in SYRINGE 0 ML IV SCH ×2 (08:38→16:36)
[2017-08-23] MEDS: LORAZEPAM 1 MG TAB PO PRN ×2 (08:38→22:18)
[2017-08-23] MEDS: DOCUSATE SODIUM 100 MG CAP PO SCH ×2 (08:39→20:47)
--- NOTE | 2017-08-23 09:29 | Orthopedic Progress Note ---
Orthopedic Progress Note Date of Service Aug 23, 2017. Subjective Post OP Day: 1 Reports: feeling well Additional Notes: Mild pain off and on in the foot/ankle; feels that the swelling has gone down some. No new complaints Objective calves soft nontender, N/V intact, dressing C/D/I, A&O x3, toes mobile, hemovac drainage (25ml latest shift) Date Time Temp Pulse Resp B/P (MAP) Pulse Ox O2 Delivery O2 Flow Rate FiO2 08/23/17 08:12 97 Room Air 08/23/17 07:52 36.9 99 18 142/86 (104) 97 Room Air 08/23/17 03:17 36.8 116 16 156/71 (99) 99 Room Air 08/23/17 01:50 114 08/22/17 23:15 Room Air 08/22/17 23:15 126 08/22/17 23:00 36.6 140 18 133/87 (102) 96 Room Air 08/22/17 18:57 37.0 102 18 116/65 (82) 98 Room Air 08/22/17 15:30 Room Air 08/22/17 15:27 36.9 110 18 147/74 (98) 95 Room Air 08/22/17 13:45 121 18 136/73 (94) 95 Room Air 08/22/17 12:52 127 16 136/73 (94) 96 Room Air 08/22/17 11:45 127 16 152/81 (104) 96 Room Air 08/22/17 11:17 118 16 137/74 (95) 95 Room Air 08/22/17 10:45 36.5 118 16 158/89 (112) 95 Room Air 08/22/17 10:45 95 Room Air 08/22/17 10:45 95 Room Air 08/22/17 10:25 37 108 20 142/90 100 Oxymask 08/22/17 10:00 120 20 137/80 100 Oxymask 08/22/17 09:50 108 20 141/101 100 Oxymask 7 08/22/17 09:44 37 103 20 127/103 100 Oxymask 7 Assessment & Plan Assessment: POD 1 s/p 1. Right ankle arthroscopy with debridement of arthrofibrosis. 2. Synovectomy, ankle. 3. Evacuation of hemarthrosis. 4. Open debridement of peroneus longus and brevis. 5. Open tenosynovectomy of the peroneal tendons. 6. Tenodesis of the peroneus longus and peroneus brevis tendons. 7. Evacuation abscess, lateral ankle. 8. Debridement lateral ankle ulceration including skin, fascia and subcutaneous fat. 9. Implantation of antibiotic Stimulan beads containing vancomycin and gentamicin. Right lateral ankle open Ulceration, Abscess lateral ankle, peroneus longus and brevis tendon tears, arthrofibrosis ankle joint, synovitis ankle, Peroneus longus and brevis tenosynovitis, hemarthrosis ankle joint Plan: IV antibx Follow cx's for now Dressing change Saturday Per Dr Gandara, planning for IV antibx for 4-6 weeks [facility] ID Team consulted. Inhouse Planning Pain Management: [place], Morphine DVT Prophylaxis: Xavier
--- NOTE | 2017-08-23 11:29 | Progress Note ---
Subjective Date of Service: Aug 23, 2017. Subjective Pt evaluation today including: conversation w/ patient, physical exam, chart review, lab review pt s/p I&D, some pain in foot, tolerating. drain remains in place. OR culture with S. aureus (h/o MSSA in 06/2017), tolerating ancef. afebrile. No new labs. no n/v/d/abd pain. all remaining ros reviewed and are negative. Problem List Medical Problems: (1) Cellulitis of right lower extremity Status: Acute Objective Vital Signs Date Time Temp Pulse Resp B/P (MAP) Pulse Ox O2 Delivery O2 Flow Rate FiO2 08/23/17 08:12 97 Room Air 08/23/17 07:52 36.9 99 18 142/86 (104) 97 Room Air 08/23/17 03:17 36.8 116 16 156/71 (99) 99 Room Air 08/23/17 01:50 114 08/22/17 23:15 Room Air 08/22/17 23:15 126 08/22/17 23:00 36.6 140 18 133/87 (102) 96 Room Air 08/22/17 18:57 37.0 102 18 116/65 (82) 98 Room Air 08/22/17 15:30 Room Air 08/22/17 15:27 36.9 110 18 147/74 (98) 95 Room Air 08/22/17 13:45 121 18 136/73 (94) 95 Room Air 08/22/17 12:52 127 16 136/73 (94) 96 Room Air 08/22/17 11:45 127 16 152/81 (104) 96 Room Air Physical Exam General Appearance: WD/WN, no apparent distress Eyes: normal inspection, EOMI Neck: supple Respiratory/Chest: lungs clear, normal breath sounds, no respiratory distress Cardiovascular: regular rate, rhythm, no edema Abdomen: non tender, soft Extremities: non-tender, no pedal edema Neurologic/Psychiatric: alert, oriented x 3 Skin: normal color Comments: dressing c/d/i, drain in place Laboratory Results Item Value Date Time Gram Stain - Final Resulted 08/22/17 0000 Tissue Ankle Right Gram Stain - Final Complete 06/10/17 2211 Drainage-Deep Toe Right 1 Assessment and Plan (1) Tenosynovitis of ankle Assessment & Plan: continue IV ancef for now, await culture results, will likely require prolonged abx post d/c. if mssa can transition to po keflex. can follow with ID post d/c
[2017-08-23] MEDS: D5W AND 1/2NSS 1,000 ML IV SCH (12:40)
[2017-08-24] MEDS: D5W AND 1/2NSS 1,000 ML IV SCH ×3 (00:20→23:58)
[2017-08-24] MEDS: CEFAZOLIN IV 1,000 MG in SYRINGE 0 ML IV SCH ×4 (00:20→23:58)
[2017-08-24] MEDS: HYDROCODONE/ACETAMIN 5/325MG TAB PO PRN ×2 (03:12→16:13)
[2017-08-24] MEDS: MoRPHine SULFATE 4 MG/ML 1 ML CARP\\VIAL IV PRN ×4 (06:32→18:56)
[2017-08-24 07:18] VITALS: BP 155/95; PULSE 107; TEMP 36.7; O2SAT 97
[2017-08-24] MEDS: DOCUSATE SODIUM 100 MG CAP PO SCH ×2 (08:11→20:56)
[2017-08-24] MEDS: ASPIRIN 325 MG ECTAB PO SCH (08:12)
[2017-08-24] MEDS: LORATADINE 10 MG TAB PO SCH (08:12)
--- NOTE | 2017-08-24 10:41 | Orthopedic Progress Note ---
Orthopedic Progress Note Date of Service Aug 24, 2017. Subjective Post OP Day: 2 Reports: feeling well, complaints (some pain off and on.) Objective calves soft nontender, N/V intact, A&O x3, toes mobile Splint taken down. Dressings removed. Moderate bloody drainage on dressings. Minimal drainage once dressing removed. Wounds benign. Adaptic "window" in place over ulcer site. Minimal swelling. Drain removed. New dressing and splint applied. Date Time Temp Pulse Resp B/P (MAP) Pulse Ox O2 Delivery O2 Flow Rate FiO2 08/24/17 08:05 Room Air 08/24/17 07:18 36.7 107 16 155/95 (115) 97 Room Air 08/24/17 00:30 Room Air 08/23/17 23:13 36.9 95 16 160/93 (115) 96 Room Air 08/23/17 15:32 36.8 107 16 151/88 (109) 98 Room Air 08/23/17 15:20 97 Room Air 08/23/17 11:53 100 166/96 (119) Additional Notes: RUN DATE: 08/24/17 [facility] LAB PAGE 1 RUN TIME: 0841 Specimen Inquiry PATIENT: NIKKI MALHOTRA LOC: W U # : [id number] AGE/SX: 31/M ROOM: [facility] REG : 08/20/[address]: Satish Gandara D.OKiana : 1985 BED: 2 DIS : STATUS: ADM IN TLOC: SPEC #: [id number] OSMAR: 08/22/17-UNK STATUS: RES REQ #: [id number] RECD: 08/22/[address]: Satish Gandara D.O. SOURCE: TISSUE ENTR: 08/22/[address] [facility] [address]: Dustin Hill MD SPDESC: Dk Acuña D.O. ORDERED: AER/SHAHLA CULTSMR COMMENTS: PERONAL TENDON Procedure Result Verified Site GRAM STAIN Final 08/22/17 RESULT MODERATE WBCs SEEN MODERATE GRAM POSITIVE COCCI OR AER/SHAHLA CULT Preliminary 08/24/17 Organism 1 STAPHYLOCOCCUS AUREUS QUANITY MANY SENS SENSITIVITY TO FOLLOW 1. STAPHYLOCOCCUS AUREUS Target Route Dose RX AB Cost M.I.C. IQ ------ ----- ------ -- ------ -------- - ------ TRIMET/SULFA S <=0.5/ 9.5 * OXACILLIN S 0.5 VANCOMYCIN S 2 ERYTHROMYCIN R >4 TETRACYCLINE S <=4 CLINDAMYCIN R <=0.5 DAPTOMYCIN S <=0.5 S = SENSITIVE I = INTERMEDIATE R = RESISTANT -------- Assessment & Plan Assessment: POD 2 s/p 1. Right ankle arthroscopy with debridement of arthrofibrosis. 2. Synovectomy, ankle. 3. Evacuation of hemarthrosis. 4. Open debridement of peroneus longus and brevis. 5. Open tenosynovectomy of the peroneal tendons. 6. Tenodesis of the peroneus longus and peroneus brevis tendons. 7. Evacuation abscess, lateral ankle. 8. Debridement lateral ankle ulceration including skin, fascia and subcutaneous fat. 9. Implantation of antibiotic Stimulan beads containing vancomycin and gentamicin. Right lateral ankle open Ulceration, Abscess lateral ankle, peroneus longus and brevis tendon tears, arthrofibrosis ankle joint, synovitis ankle, Peroneus longus and brevis tenosynovitis, hemarthrosis ankle joint Plan: IV antibx Cx's as noted above; Staph Aureus Dressing change Saturday Per Dr Gandara, planning for IV antibx for 4-6 weeks [facility]B RLE ID Team consulted. Await antibx recommendation Inhouse Planning Pain Management: [place], Morphine DVT Prophylaxis: Xavier
[2017-08-24] MEDS: LORAZEPAM 1 MG TAB PO PRN (10:54)
[2017-08-24] MEDS ORDERED: NURSING VERBAL MED ORDER ONE (14:00)
[2017-08-24 14:55] VITALS: BP 122/85; PULSE 113; TEMP 36.8; O2SAT 97
[2017-08-24 16:00] VITALS: O2SAT 97
[2017-08-25] MEDS: MoRPHine SULFATE 4 MG/ML 1 ML CARP\\VIAL IV PRN ×3 (03:12→17:08)
[2017-08-25 07:24] VITALS: BP 132/85; PULSE 86; TEMP 36.7; O2SAT 97
[2017-08-25] MEDS: ASPIRIN 325 MG ECTAB PO SCH (08:09)
[2017-08-25] MEDS: LORATADINE 10 MG TAB PO SCH (08:09)
[2017-08-25] MEDS: CEFAZOLIN IV 1,000 MG in SYRINGE 0 ML IV SCH (08:10)
[2017-08-25] MEDS: DOCUSATE SODIUM 100 MG CAP PO SCH ×2 (08:10→20:16)
[2017-08-25] MEDS: LORAZEPAM 1 MG TAB PO PRN ×2 (08:10→20:16)
[2017-08-25] MEDS: HYDROCODONE/ACETAMIN 5/325MG TAB PO PRN ×3 (08:10→20:17)
--- NOTE | 2017-08-25 09:18 | Orthopedic Progress Note ---
Orthopedic Progress Note Date of Service Aug 25, 2017. Subjective Post OP Day: 3 Reports: feeling well, Denies: complaints Objective splint C/D/I, A&O x3, toes mobile Date Time Temp Pulse Resp B/P (MAP) Pulse Ox O2 Delivery O2 Flow Rate FiO2 08/25/17 07:24 36.7 86 16 132/85 (101) 97 Room Air 08/25/17 00:00 Room Air 08/24/17 16:00 97 Room Air 08/24/17 14:55 36.8 113 18 122/85 (97) 97 Room Air Assessment & Plan Assessment: POD 3 s/p 1. Right ankle arthroscopy with debridement of arthrofibrosis. 2. Synovectomy, ankle. 3. Evacuation of hemarthrosis. 4. Open debridement of peroneus longus and brevis. 5. Open tenosynovectomy of the peroneal tendons. 6. Tenodesis of the peroneus longus and peroneus brevis tendons. 7. Evacuation abscess, lateral ankle. 8. Debridement lateral ankle ulceration including skin, fascia and subcutaneous fat. 9. Implantation of antibiotic Stimulan beads containing vancomycin and gentamicin. Right lateral ankle open Ulceration, Abscess lateral ankle, peroneus longus and brevis tendon tears, arthrofibrosis ankle joint, synovitis ankle, Peroneus longus and brevis tenosynovitis, hemarthrosis ankle joint Plan: IV antibx Cx - Staph Aureus (MSSA) Per Dr Gandara, planning for IV antibx for 4-6 weeks NWB RLE ID Team consulted. Await antibx recommendation Inhouse Planning Pain Management: [place], Morphine DVT Prophylaxis: Xavier
[2017-08-25] MEDS: CEFTRIAXONE SOD INJ 2,000 MG in DEXTROSE 5% 50ML 50 ML IV SCH (13:33)
[2017-08-25] MEDS: D5W AND 1/2NSS 1,000 ML IV SCH (13:34)
[2017-08-25 15:15] VITALS: BP 123/92; PULSE 129; TEMP 36.8; O2SAT 95
[2017-08-25 23:03] VITALS: BP 127/84; PULSE 79; TEMP 36.6; O2SAT 97
[2017-08-26] MEDS: D5W AND 1/2NSS 1,000 ML IV SCH (00:22)
[2017-08-26 07:18] VITALS: BP 110/71; PULSE 86; TEMP 36.7; O2SAT 96
[2017-08-26] MEDS: HYDROCODONE/ACETAMIN 5/325MG TAB PO PRN ×2 (07:57→14:24)
[2017-08-26] MEDS: DOCUSATE SODIUM 100 MG CAP PO SCH (08:54)
[2017-08-26] MEDS: LORATADINE 10 MG TAB PO SCH (08:54)
[2017-08-26] MEDS: ASPIRIN 325 MG ECTAB PO SCH (08:55)
[2017-08-26] MEDS: LORAZEPAM 1 MG TAB PO PRN (08:55)
--- NOTE | 2017-08-26 09:51 | Progress Note ---
Subjective Date of Service: Aug 26, 2017. Subjective culture with MSSA, changed to ctx by surgery over weekend. afebrile. No new labs. Problem List Medical Problems: (1) Cellulitis of right lower extremity Status: Acute Objective Vital Signs Date Time Temp Pulse Resp B/P (MAP) Pulse Ox O2 Delivery O2 Flow Rate FiO2 08/26/17 07:18 36.7 86 16 110/71 (84) 96 Room Air 08/26/17 00:00 Room Air 08/25/17 23:03 36.6 79 16 127/84 (98) 97 Room Air 08/25/17 16:10 Room Air 08/25/17 15:15 36.8 129 18 123/92 (102) 95 Room Air Laboratory Results Item Value Date Time Gram Stain - Final Resulted 08/22/17 0000 Tissue Ankle Right Assessment and Plan (1) Tenosynovitis of ankle Assessment & Plan: will likely require prolonged abx post d/c. culture growing mssa can transition to po keflex. would give 6 weeks. can follow with ID post d/c
[2017-08-26] MEDS: MoRPHine SULFATE 4 MG/ML 1 ML CARP\\VIAL IV PRN (10:26)
--- NOTE | 2017-08-26 12:28 | Orthopedic Progress Note ---
Orthopedic Progress Note Date of Service Aug 26, 2017. Subjective Post OP Day: 4 Reports: feeling well, Denies: complaints Objective N/V intact, A&O x3, toes mobile Splint/Dressing removed. Wounds appear benign. No overt erythema or swelling. Not as much drainage noted on this dressing change. All bloody serous drainage. Redressed and splint reapplied. Date Time Temp Pulse Resp B/P (MAP) Pulse Ox O2 Delivery O2 Flow Rate FiO2 08/26/17 08:00 Room Air 08/26/17 07:18 36.7 86 16 110/71 (84) 96 Room Air 08/26/17 00:00 Room Air 08/25/17 23:03 36.6 79 16 127/84 (98) 97 Room Air 08/25/17 16:10 Room Air 08/25/17 15:15 36.8 129 18 123/92 (102) 95 Room Air Assessment & Plan Assessment: POD 4 s/p 1. Right ankle arthroscopy with debridement of arthrofibrosis. 2. Synovectomy, ankle. 3. Evacuation of hemarthrosis. 4. Open debridement of peroneus longus and brevis. 5. Open tenosynovectomy of the peroneal tendons. 6. Tenodesis of the peroneus longus and peroneus brevis tendons. 7. Evacuation abscess, lateral ankle. 8. Debridement lateral ankle ulceration including skin, fascia and subcutaneous fat. 9. Implantation of antibiotic Stimulan beads containing vancomycin and gentamicin. Right lateral ankle open Ulceration, Abscess lateral ankle, peroneus longus and brevis tendon tears, arthrofibrosis ankle joint, synovitis ankle, Peroneus longus and brevis tenosynovitis, hemarthrosis ankle joint Plan: IV antibx Cx - Staph Aureus (MSSA) Per Dr Gandara, planning for IV antibx for 4-6 weeks NWB RLE ID Team consulted. Appreciate input. plan for dc to home today Inhouse Planning Pain Management: [place], Morphine DVT Prophylaxis: Xavier
[2017-08-26] MEDS: CEFTRIAXONE SOD INJ 2,000 MG in DEXTROSE 5% 50ML 50 ML IV SCH (12:35)
[2017-08-26] MEDS ORDERED: HYDR-5688 PO ×2 (12:37→12:56)
[2017-08-26] MEDS ORDERED: RCPI2 IV ×2 (12:37→12:58)
[2017-08-26] MEDS ORDERED: ASPEC325 PO (12:37)
--- NOTE | 2017-08-26 12:55 | Discharge Instructions ---
Discharge Instructions Date of Service Aug 26, 2017. Admission Reason for Admission: Right Ankle Cellulitis - Open And Draining Wound Discharge Discharge Diagnosis / Problem: Right ankle cellulitis; infection right lateral ankle ulcer Discharge Goals Goal(s): Decrease discomfort, Improve function, Increase independence Activity Recommendations Activity Limitations: per Instructions/Follow-up section Weightbearing Status: Right non-weightbearing . Instructions / Follow-Up Instructions / Follow-Up Keep splint clean and dry. You may shower but must keep a waterproof covering over the splint/dressing. You can be weight bearing as tolerated. You will need to do regular dressing changes to watch your wound. You can use adaptic vaseline gauze on the wound, then 4x4 gauze. Then cover with kerlix wrap or cast padding wrap up to the knee (if still using the splint). Then cover with nehal wraps. You will be getting IV antibx for several weeks at the [facility] ([facility]) at [facility]. You will be transitioned over to oral antibiotics when Dr Gandara thinks appropriate. When you come in for your antibiotics on Saturday (08/28/17), let the staff in the MTU know that Dr Gandara or his PA Koko Shook want to do a dressing change and look at your wound. Call Dr Gandara's office with any questions you may have. [phone] Current Hospital Diet Patient's current hospital diet: Regular Diet Discharge Diet Recommended Diet: Regular Diet Procedures Procedures Performed: Evacuation Abscess Lateral Ankle, Debridement Ulceration Lateral Ankle, Debridement and Tenosynovectomy Peroneus and beroneus brevis Tendons, Tendonesis Peroneus Longus to peroneus brevis, Implantation Stimulan Antibiotic Beads, Arthroscopy Right Ankle, Evacuation of Hemarthrosis ankle, Debridement of Arthrofibrosis, Synovectomy Right Ankle Pending Studies Studies pending at discharge: yes List of pending studies: Final culture results Medical Emergencies . Who to Call and When: Medical Emergencies: If at any time you feel your situation is an emergency, please call 911 immediately. . Non-Emergent Contact Non-Emergency issues call your: Surgeon Call Non-Emergent contact if: temperature is above 101.5, your pain is not controlled, your pain is worsening, wound has increased drainage, wound has increased redness . "Provider Documentation" section prepared by Ming Hernandez. . [place] Drug Monitoring Program Search Results: patient reviewed within database, see additional documentation Drug Monitoring Findings: Pt was on Suboxone but has not received rx since June. Pt states he no longer takes this.
[2017-08-26 13:50] VITALS: BP 110/71; PULSE 86; TEMP 36.7; O2SAT 96
--- NOTE | 2017-08-30 15:17 | DISCHARGE SUMMARY ---
DISCHARGE DIAGNOSES: Right lateral ankle open ulceration and abscess, lateral ankle peroneus longus and brevis tendon tears, arthrofibrosis ankle joint, synovitis of the right ankle, peroneus longus and brevis tenosynovitis with hemarthrosis of the ankle joint. SECONDARY DIAGNOSIS: Hypertension. CONSULTS: None. COMPLICATIONS: None. PROCEDURES: Evacuation of abscess right lateral ankle with debridement of ulceration lateral ankle, debridement and tenosynovectomy peroneus and brevis tendons, tenodesis of peroneus longus to peroneus brevis, implantation of Stimulan antibiotic beads, arthroscopy right ankle, evacuation of hemarthrosis ankle, debridement of arthrofibrosis and synovectomy right ankle by Dr. Gandara on 08/22/2017. BRIEF HISTORY: As dictated in history and physical. HOSPITAL SUMMARY: The patient was admitted on the above-noted date and on 08/22/2017 was taken to the operating room and the above-noted surgery was performed which the patient tolerated well. Dr. Gutierrez will be consulted from infectious diseases to follow up the patient during his stay. On his first postoperative day, he was feeling well. He had mild pain off and on the right ankle and foot, but he felt that the swelling had gone down. He had no new complaints. Calves were soft, nontender. Neurovascularly intact. Dressings were clean, dry and intact. Toes were mobile. Vital signs were stable. He was afebrile. He was continued on IV antibiotics as per ID team and plans were to follow cultures at this point in time. Plans were for him to be nonweightbearing right lower extremity and the possibility of likelihood of IV antibiotics for several weeks. By his second postoperative day, he was feeling well. Calves were soft, nontender. Neurovascularly intact. Toes were mobile. Splint was removed. Dressings removed. He had moderate bloody drainage on the dressings. He had minimal drainage once the dressing was removed. Wounds were benign. There was an Adaptic window in place over the ulcer site that was holding the antibiotic beads. He had minimal swelling. Drain was removed. New dressing and splint were applied, and vital signs were stable and he was afebrile. Cultures came back positive for Staph aureus that was MSSA. Ancef was switched over to Rocephin daily. With discussion with Dr. Gandara, he wanted the patient to be on IV antibiotics for at least 2-4 weeks post surgery. A PICC line was placed and dressing was changed on his fourth postoperative day. He had no overt erythema or swelling. He had less drainage noted on his dressing. Wounds were appearing benign. Vital signs were stable, he was afebrile and it was felt he could be discharged to home. Plans were for him to come in to the MTU on a daily basis here at [facility] for his IV antibiotics. For further review, please see chart. LABORATORY AND X-RAY DATA: As per chart. DISCHARGE INSTRUCTIONS: The patient was discharged home in satisfactory condition on 08/26/2017. DIET: Regular. ACTIVITY: Nonweightbearing right lower extremity. INSTRUCTIONS: Keep splint clean and dry. May shower but must keep a waterproof covering over the splint and dressing. You will need to do regular dressing changes to watch the wound, use Adaptic Vaseline gauze on the wound, then 4 x 4 gauze, then cover with Kerlix wrap or cast padding wrap up to the knee. If still using the splint, then cover with Kennedy wraps. He will be receiving IV antibiotics for several weeks in the MTU. He will be transitioned over to oral antibiotics when Dr. Gandara thinks appropriate. When you come in for your antibiotics on 08/28/2017, let the staff in [facility]U know that Dr. Gandara or his PA, Koko Shook, wanted to do a dressing change of the wound. Call Dr. Gandara's office with any questions you may have. DISCHARGE MEDICATIONS: Aspirin 325 mg p.o. daily for 30 days, ceftriaxone 2 grams IV daily for 28 days, [place] 5/325 one to two tabs p.o. q. 4 hours p.r.n. Resume home meds including gabapentin 800 mg p.o. t.i.d. and trazodone 100 mg p.o. at bedtime.
== END 2017-08-26 14:43 | disposition home or self-care (01) | DRG 580 ==
LOC: C.MSW 17:14
PROVIDERS: ADMIT Orthopaedic Surgery Sports Medicine; ATTEND Orthopaedic Surgery Sports Medicine
PROC: 0SB Lower Joints, Excision (ICD-10-PCS; principal; 2017-08-20)
PROC: 3E0U029 Introduction of Other Anti-infective into Joints, Open Approach (ICD-10-PCS; principal; 2017-08-20)
PROC: 0LQS0ZZ Repair Right Ankle Tendon, Open Approach (ICD-10-PCS; principal; 2017-08-20)
PROC: 0LB Tendons, Excision (ICD-10-PCS; principal; 2017-08-20)
PROC: 0S9F0ZX Drainage of Right Ankle Joint, Open Approach, Diagnostic (ICD-10-PCS; principal; 2017-08-20)
DX: L97.309 Non-pressure chronic ulcer of unspecified ankle with unspecified severity (principal); L02.415 Cutaneous abscess of right lower limb; M25.071 Hemarthrosis, right ankle; S96.801A Unspecified injury of other specified muscles and tendons at ankle and foot level, right foot, initial encounter; F41.9 Anxiety disorder, unspecified; F17.200 Nicotine dependence, unspecified, uncomplicated; M24.671 Ankylosis, right ankle; M65.871 Other synovitis and tenosynovitis, right ankle and foot; I10 Essential (primary) hypertension